=== PATIENT | female | born 1940 | race Caucasian/White ===

== ENCOUNTER → 2018-12-29 10:07 | Outpatient (CLI) | payer MEDICARE, SELFPAY | PROVIDERS: Visit Provider Family Medicine | DX: Z78.0 Asymptomatic menopausal state (principal); M85.89 Other specified disorders of bone density and structure, multiple sites | CPT/HCPCS: 77080 ==

== ENCOUNTER 2020-12-05 11:10 | Emergency (ER) | payer MEDICARE, SELFPAY ==
[2020-12-05] VITALS (12 sets, daily range): BP systolic 119–146; BP diastolic 56–67; PULSE 67–81; RESP 14–27; TEMP 36.2; O2SAT 92–99
--- NOTE | 2020-12-05 11:26 | DI.RAD.S_ITS ---
PROCEDURE: XR CHEST 1V INDICATIONS: chest pain TECHNIQUE: One view of the chest was acquired. COMPARISON: None. FINDINGS: Surgical changes and devices: None. Lungs and pleura: Lungs are clear. No pleural effusions or pneumothorax. Mediastinum: Mediastinal contours appear normal. Heart size is normal. Bones and chest wall: No suspicious bony lesions. Overlying soft tissues appear unremarkable. IMPRESSION: No acute pulmonary process. Dictated by: Zulema Matthews M.D. on 12/05/2020 at 12:33 Approved by: Zulema Matthews M.D. on 12/05/2020 at 12:33
[2020-12-05 12:42] LABS: Add Manual Diff / Slide Review NO; Basophils Absolute Auto 100 /uL (0-100); Basophils Percent Auto 0.9 % (0-2); Eosinophils Absolute Auto 100 /uL (0-450); Eosinophils Percent Auto 0.8 % (2-4); Hematocrit 28.3 % (36-46); Hemoglobin 9.6 g/dL (12.0-16.0); Lymphocytes Absolute Auto 1200 /uL (1100-4500); Lymphocytes Percent Auto 17.2 % (25-40); Mean Corpuscular Hemoglobin 30.6 PG (26-34); Monocytes Absolute Auto 400 /uL (0-900); Monocytes Percent Auto 5.8 % (3-14); Neutrophils Absolute Auto 5400 /uL (1500-7000); Neutrophils Percent Auto 75.3 % (50-75); Platelet Count 242 X10^3/uL (150-400); Red Blood Cell Count 3.15 X10^6/uL (4.0-5.2); Red Cell Distribution Width 13.5 % (11.6-14.8); White Blood Cell Count 7.2 X10^3/uL (4.5-11.0)
[2020-12-05 12:53] LABS: Alanine Aminotransferase 46 IU/L (<35); Albumin 4.1 g/dL (3.5-5.0); Albumin Globulin Ratio 1.6 (1.0-2.8); Alkaline Phosphatase 78 U/L (38-126); Aspartate Aminotransferase 37 IU/L (14-36); BUN Creatinine Ratio 27.1 (6-22); Bilirubin Total 0.3 mg/dL (0.2-1.3); Blood Urea Nitrogen 19 mg/dL (7-17); Calcium 10.1 mg/dL (8.4-10.2); Carbon Dioxide 29 mmol/L (22-32); Chloride 106 mmol/L (98-107); Creatine Kinase 37 U/L (30-135); Estimated Glomerular Filt Rate > 60.0 mL/min (>60); Globulin 2.5 g/dL (1.7-4.1); Glucose 96 mg/dL (80-110); HEMOLYSIS < 15 (0-50); Lipase 166 U/L (23-300); Magnesium 2.1 mg/dL (1.6-2.3); Potassium 3.9 mmol/L (3.4-5.1); Sodium 139 mmol/L (137-145); Total Protein 6.6 g/dL (6.3-8.2)
[2020-12-05 13:04] LABS: Troponin I < 0.012 ng/mL (0.01-0.034)
--- NOTE | 2020-12-05 13:42 | ED_ITS ---
HPI - Chest Pain General Chief Complaint: Chest Pain Stated Complaint: chest pain, started in last 20 minutes Time Seen by Provider: 12/05/20 11:34 Source: patient Mode of arrival: Ambulatory Limitations: no limitations History of Present Illness HPI narrative: This is a pleasant 80-year-old female comes emergency department with complaint of right-sided chest discomfort that started around 10:00 a.m. in the morning. Patient states it is on the right side it is worse with movement of her upper extremity particularly the shoulder, deep breath. Patient denies any recent trauma. She does state that she had a near syncopal episode and got diaphoretic and had to have a seat while getting up to urinate in the middle the night. She did not have any chest pain or shortness of breath that episode. She denies any shortness of breath with this episode today. Discomfort is still present. She denies any nausea, no vomiting, no numbness some tingling or weakness. She has a rash in her left armpit but does not have any rash or skin changes of the left chest or arm. She has not had any diarrhea. No melanotic or bright red bloody stools. Patient did have a TIA in September of 2020. She was started on aspirin daily and is noted that her hemoglobin was 13 in September and is 9.6 today. Related Data Home Medications Medication Instructions Recorded Confirmed Alendronate Sodium (FOSAMAX) 5 mg PO Q DAY #0 01/15/07 [THIROXINE] Q DAY #0 01/15/07 Allergies Allergy/AdvReac Type Severity Reaction Status Date / Time No Known Drug Allergies Allergy Verified 12/05/20 12:32 Review of Systems Review of Systems ROS Unobtainable: All systems reviewed & are unremarkable except as noted in HPI and below Patient History Social History Smoking Status: Never smoker Smoking Status: Never smoker alcohol intake frequency: 0-2 drinks per day Substance Use Type: does not use Exam Narrative Exam Narrative: GENERAL: Alert and oriented x three, mild distress HEENT: Head normocephalic, atraumatic, EOMI, pupils reactive, face symmetric, moist mucous membranes NECK: Supple, full range of motion CARDIOVASCULAR: Regular rate and rhythm without murmurs, rubs or gallops. RESPIRATORY: Breath sounds equal bilaterally, no wheezes rales or rhonchi. ABDOMEN: Soft, nontender. Normoactive bowel sounds all 4 quadrants. No guarding or rebound, rigidity, no mass, on rectal exam no mass. Stool occult is positive with dark stool. : No CVA tenderness EXTREMITIES: Normal range of motion, no clubbing or edema. Neurovascularly intact NEUROLOGICAL: Cranial nerves II through XII grossly intact. Moving all extremities SKIN: Warm, dry, no petechiae, no rashes or lesions. Initial Vital Signs Initial Vital Signs: Vital Signs Temperature 97.1 F L 12/05/20 11:22 Pulse Rate 80 12/05/20 11:22 Respiratory Rate 14 12/05/20 11:22 Blood Pressure 136/60 12/05/20 11:22 Pulse Oximetry 96 12/05/20 11:22 Course Orders Ordered: ED Orders 12/05/20 11:26 XR chest 1V Stat EKG-12 Lead Stat 12/05/20 12:21 Ferritin Stat Iron Profile (w/ % Saturation) Stat 12/05/20 12:31 Complete Blood Count AUTO DIFF Stat Comprehensive Metabolic Panel Stat Lipase Stat Magnesium Stat Troponin & CK Cardiac Panel Stat 12/05/20 13:45 COVID19 -Nasal swab/Pre-Proc Stat 12/05/20 14:30 Troponin I Stat 12/05/20 15:09 EKG-12 Lead Stat Discontinued Medications Acetaminophen (Acetaminophen 325 Mg Tablet) 975 mg PO NOW ONE Stop: 12/05/20 14:48 Last Admin: 12/05/20 15:30 Dose: 975 mg Documented by: [email or web address] Reevaluation(s) Reevaluation #1: Updated on EKG and troponin findings. Patient also encouraged to follow up short-term with gastroenterology or our general surgeons for scope. Her daughter is at bedside who is happy to help facilitate this. They defer a prescription and will get PPI over the counter and start this today. Discussed patient's anticoagulation versus balance for GI bleed with her aspirin. Plan to hold for 1 week but aware that this does increase her stroke risk. Patient was encouraged to return shortly she does not wish to be kept for observation. Consultations Consultation #1: Dr. Pratt, general surgery for outpatient follow up. Vital Signs Vital signs: Vital Signs - 8 hr 12/05/20 12:24 12/05/20 12:25 12/05/20 12:30 Pulse Rate 73 74 75 Respiratory Rate 25 H Blood Pressure 134/56 L 130/63 Pulse Oximetry 99 92 12/05/20 13:00 12/05/20 13:30 12/05/20 13:31 Pulse Rate 67 68 71 Respiratory Rate 22 24 25 H Blood Pressure 119/58 L 129/61 Pulse Oximetry 12/05/20 14:00 12/05/20 14:30 12/05/20 15:00 Pulse Rate 73 80 76 Respiratory Rate 23 23 22 Blood Pressure 131/60 Pulse Oximetry 12/05/20 15:30 12/05/20 16:05 Pulse Rate 81 80 Respiratory Rate 27 H 14 Blood Pressure 146/67 H Pulse Oximetry MDM - Chest Pain Lab Data Result diagrams: 12/05/20 12:31 12/05/20 12:31 Labs: Lab Results 12/05/20 12/05/20 12/05/20 Range/Units 12:21 12:21 12:31 WBC 7.2 (4.5-11.0) X10^3/uL RBC 3.15 L (4.0-5.2) X10^6/uL Hgb 9.6 L (12.0-16.0) g/dL Hct 28.3 L (36-46) % MCV 90.0 (80-100) fL MCH 30.6 (26-34) PG MCHC 34.0 (30-36) % RDW 13.5 (11.6-14.8) % Plt Count 242 (150-400) X10^3/uL Neut % (Auto) 75.3 H (50-75) % Lymph % (Auto) 17.2 L (25-40) % [place] % (Auto) 5.8 (3-14) % Eos % (Auto) 0.8 L (2-4) % Baso % (Auto) 0.9 (0-2) % Neut # (Auto) 5400 (6029-4096) /uL Lymph # (Auto) 1200 (5984-5710) /uL [place] # (Auto) 400 (0-900) /uL Eos # (Auto) 100 (0-450) /uL Baso # (Auto) 100 (0-100) /uL Sodium (137-145) mmol/L Potassium (3.4-5.1) mmol/L Chloride (98-107) mmol/L Carbon Dioxide (22-32) mmol/L BUN (7-17) mg/dL Creatinine (0.52-1.04) mg/dL Estimated GFR (>60) mL/min BUN/Creatinine Ratio (6-22) Glucose (80-110) mg/dL Calcium (8.4-10.2) mg/dL Magnesium (1.6-2.3) mg/dL Iron 73 (37-170) ug/dL TIBC 267 (265-497) ug/dL % Saturation 27 (15-50) % Transferrin 200 L (206-381) mg/dL Ferritin 85 (11-264) ng/mL Total Bilirubin (0.2-1.3) mg/dL AST (14-36) IU/L ALT (<35) IU/L Alkaline Phosphatase (38-126) U/L Total Creatine Kinase (30-135) U/L CK-MB (CK-2) CK-MB (CK-2) Rel Index Troponin I (0.01-0.034) ng/mL Total Protein (6.3-8.2) g/dL Albumin (3.5-5.0) g/dL Globulin (1.7-4.1) g/dL Albumin/Globulin Ratio (1.0-2.8) Lipase (23-300) U/L SARS-CoV-2 (PCR) (Negative) 12/05/20 12/05/20 12/05/20 Range/Units 12:31 13:45 14:30 WBC (4.5-11.0) X10^3/uL RBC (4.0-5.2) X10^6/uL Hgb (12.0-16.0) g/dL Hct (36-46) % MCV (80-100) fL MCH (26-34) PG MCHC (30-36) % RDW (11.6-14.8) % Plt Count (150-400) X10^3/uL Neut % (Auto) (50-75) % Lymph % (Auto) (25-40) % [place] % (Auto) (3-14) % Eos % (Auto) (2-4) % Baso % (Auto) (0-2) % Neut # (Auto) (4026-9499) /uL Lymph # (Auto) (8474-7279) /uL [place] # (Auto) (0-900) /uL Eos # (Auto) (0-450) /uL Baso # (Auto) (0-100) /uL Sodium 139 (137-145) mmol/L Potassium 3.9 (3.4-5.1) mmol/L Chloride 106 (98-107) mmol/L Carbon Dioxide 29 (22-32) mmol/L BUN 19 H (7-17) mg/dL Creatinine 0.70 (0.52-1.04) mg/dL Estimated GFR > 60.0 (>60) mL/min BUN/Creatinine Ratio 27.1 H (6-22) Glucose 96 (80-110) mg/dL Calcium 10.1 (8.4-10.2) mg/dL Magnesium 2.1 (1.6-2.3) mg/dL Iron (37-170) ug/dL TIBC (265-497) ug/dL % Saturation (15-50) % Transferrin (206-381) mg/dL Ferritin (11-264) ng/mL Total Bilirubin 0.3 (0.2-1.3) mg/dL AST 37 H (14-36) IU/L ALT 46 H (<35) IU/L Alkaline Phosphatase 78 (38-126) U/L Total Creatine Kinase 37 (30-135) U/L CK-MB (CK-2) TNP CK-MB (CK-2) Rel Index TNP Troponin I < 0.012 < 0.012 (0.01-0.034) ng/mL Total Protein 6.6 (6.3-8.2) g/dL Albumin 4.1 (3.5-5.0) g/dL Globulin 2.5 (1.7-4.1) g/dL Albumin/Globulin Ratio 1.6 (1.0-2.8) Lipase 166 (23-300) U/L SARS-CoV-2 (PCR) Negative (Negative) Urine Dip Bedside Urine Glucose Negative Bedside Urine Bilirubin - Negative Bedside Urine Ketone - Negative Urine Specific Western 1.020 Bedside Urine Occult Blood - Negative Bedside Urine pH 6 Bedside Urine Protein - Negative Bedside Urine Urobilinogen - Negative Bedside Urine Nitrite - Negative Bedside Urine Leukocytes - Negative Esterase Imaging Data Chest x-ray: Radiologist's Impression: Rin Jenkins 80 F [address] [id number] ReportSigned Patient: Rin Jenkins MMR#: [id number]: 1940cct:[id number]/Sex: 80 / FDate of Service: 12/05/20Loc: EDAccession Number: [id number] Procedure: XR chest 1V Ordering Provider: Marija Zapata D.O. PROCEDURE: XR CHEST 1V INDICATIONS: chest pain TECHNIQUE: One view of the chest was acquired. COMPARISON: None. FINDINGS: Surgical changes and devices: None. Lungs and pleura: Lungs are clear. No pleural effusions or pneumothorax. Mediastinum: Mediastinal contours appear normal. Heart size is normal. Bones and chest wall: No suspicious bony lesions. Overlying soft tissues appear unremarkable. IMPRESSION: No acute pulmonary process. Dictated by: Zulema Matthews M.D. on 12/05/2020 at 12:33 Approved by: Zulema Matthews M.D. on 12/05/2020 at 12:33 ECG Data Interpretation: Sinus rhythm, rate of 70 8p are 144 QRS is 74 and QTC of 471. No acute ST elevation depression. Patient does not have prior for comparison. EKG 2. Sinus rhythm rate of 70 2p are 152 QRS is 74 and QTC of 470. No acute ST elevation depression. Patient's EKG appears similar to prior from today. MDM Narrative Medical decision making narrative: 80-year-old female comes with of right-sided chest pain which is worse with movement. She did have a near syncopal episode she denies any passing out. But is noted to have a drop in her hemoglobin from 13-9.6 and stool occult is positive. Patient has mildly elevated AST, ALT. Trope is negative, chest x-ray shows no acute changes. EKG does not show any acute changes today I do not have any priors for comparison. Patient's labs do show a drop in her hemoglobin, was able to obtain all old and her hemoglobin was 13 in September, she was started on aspirin after a TIA and likely has a slow GI bleed. Patient prefers to be discharged home today. Discharge Plan Departure Patient Disposition: Home Clinical Impression: GI bleed, Atypical chest pain Activity Restrictions/Additional Instructions: Follow-up with your physician, here hemoglobin has decreased by quite a bit and this may have caused your near syncopal episode the other night. Talk with your physician to have your hemoglobin rechecked later this week. You need colonoscopy and likely upper endoscopy for evaluation of your source of bleeding. Included below is referral to our general surgeon for endoscopy and/or colonoscopy. Call for an appointment. I have discussed your case with Dr. Pratt. Hold your aspirin until you discuss with your physician. This will potentially increase your stroke risk so please discuss with your physician if you continue to hold it for a long period of time. Take pepcid 40mg daily. This is available over the counter. Please return for new or worsening symptoms, recurrent lightheadedness or passing out, fevers, new or worsening chest pain short, shortness of breath, sweatiness, nausea, new swelling in your extremities or other new or concerning symptoms Prescriptions: No Action Alendronate Sodium (FOSAMAX) 5 mg PO Q DAY Qty: 0 RF: 0 [THIROXINE] Q DAY Qty: 0 RF: 0 Referrals: Mary Pratt MD [Physician] - April Morrow MD [Primary Care Provider] -
[2020-12-05 15:25] LABS: COVID19 -Nasal RAPID Negative (Negative)
[2020-12-05] MEDS: ACETAMINOPHEN 325 MG TABLET 975 MG PO (15:30)
[2020-12-05 15:34] LABS: Troponin I < 0.012 ng/mL (0.01-0.034)
[2020-12-05 16:11] LABS: HEMOLYSIS < 15 (0-50); Iron 73 ug/dL (37-170)
[2020-12-05 16:22] LABS: Percent Iron Saturation 27 % (15-50); Total Iron Binding Capacity 267 ug/dL (265-497); Transferrin 200 mg/dL (206-381)
[2020-12-05 16:50] LABS: Ferritin 85 ng/mL (11-264)
== END 2020-12-05 16:06 | disposition home or self-care (01) ==
PROVIDERS: Emergency Provider Emergency Medicine; PCP Student in an Organized Health Care Education/Training Program
DX: K92.2 Gastrointestinal hemorrhage, unspecified (principal); R07.89 Other chest pain; R55 Syncope and collapse; Z20.822 Contact with and (suspected) exposure to COVID-19
CPT/HCPCS: 36415; 71045; 80053; 81003; 82550; 82728; 83540; 83550; 83690; 83735; 84484; 85025; 87635; 93005; 93010; 99284; C9803

== ENCOUNTER → 2021-01-11 09:23 | Outpatient (CLI) | payer MEDICARE, SELFPAY ==
[2021-01-11 10:46] LABS: COVID19 -Nasal RAPID Negative (Negative)
== END ==
PROVIDERS: PCP Student in an Organized Health Care Education/Training Program; Visit Provider Surgery
DX: Z01.812 Encounter for preprocedural laboratory examination (principal); Z20.822 Contact with and (suspected) exposure to COVID-19
CPT/HCPCS: 87635; C9803

== ENCOUNTER 2021-01-12 14:12 | Day surgery (SDC) | payer MEDICARE, SELFPAY ==
[2021-01-12] VITALS (7 sets, daily range): BP systolic 99–142; BP diastolic 65–85; PULSE 62–96; RESP 16–18; TEMP 36.4–36.6; O2SAT 95–100; BMI 24.7
--- NOTE | 2021-01-12 | PATH_ITS ---
[facility] Accession Number: [id number] . 01 Material submitted: . PART A: stomach - STOMACH BIOPSY PART B: colon - DESCENDING COLON POLYP . 02 Diagnosis: A. Stomach Biopsy: Helicobacter pylori gastritis with intestinal metaplasia, confirmed by immunohistochemistry. Negative for dysplasia and malignancy. . B. Descending Colon, Polyp, Biopsy: Tubulovillous adenoma. No evidence of malignancy or high-grade dysplasia. MRV 01/17/2021 1313 Local . 02 Electronically signed: . Trista Vargas MD, Pathologist NPI- [id number] . 01 Gross description: . Part A: STOMACH BIOPSY: Received in formalin are 2 fragment(s) of oneal, soft tissue measuring 0.3 x 0.2 x 0.2 cm to 0.3 x 0.2 x 0.1 cm submitted entirely in 1 cassette(s) Part B: DESCENDING COLON POLYP: Received in formalin are multiple fragment(s) of oneal, soft tissue measuring 2.0 x 1.0 x 0.4 cm in aggregate submitted entirely in 1 cassette(s) /KIMBERLEY 01/13/2021 0705 Local . 02 Microscopic: . A. An immunohistochemical stain was performed to evaluate for Helicobacter organisms and is positive. The control stain showed appropriate reactivity. . * This test was developed and its performance characteristics determined by [employer]. It has not been cleared or approved by the U.S. Food and Drug Administration. The FDA has determined that such clearance or approval is not necessary. This test is used for clinical purposes. It should not be regarded as investigational or for research. . 02 Pathologist provided ICD-10: D64.9, D12.4, B96.81 . 02 CPT . 815959, 597584, N96133 Performed at: 01 [facility] [address] [place] [address], [place], [place] [id number] MD Merrill Herrera MD Phone: [phone] Performed at: 02 [facility] [address] [place], [place] [id number] MD Trista Vargas MD Phone: [phone]
[2021-01-12] MEDS: LACTATED RINGERS 1,000 ML 200 ML IV (14:50)
--- NOTE | 2021-01-12 15:17 | PM.PREOP ---
Pre-operative Note Interval Note History & Physical reviewed/Exam performed by Physician: Yes Changes to H&P: No
--- NOTE | 2021-01-12 15:57 | PM.OP.ENDO ---
Operative Date/Time/Diagnoses Date of procedure: 01/12/21 Time of procedure: 15:57 Pre-op diagnosis: Anemia Post-op diagnosis: other (Gastritis, colonic polyp) Procedure & Clinicians Study performed: Colonoscopy and esophagoduodenoscopy Same procedure as scheduled: Yes Indications: Anemia Surgeon: Ollie Gómez Procedure Notes Procedure in detail: Medications: Conscious sedation using 5mg IV midazolam and 150mcg IV of fentanyl The history and physical was performed/updated and the patient is ASA class is 2. The procedure was discussed in detail with the patient. Potential risks complications including infection, bleeding, missed diagnosis, perforation, need for surgery, and were explained. Their questions were answered and informed consent was obtained. Patient was brought to the procedure room and placed standard monitoring equipment. The patient's vital signs were monitored continuously throughout the entire procedure. Prior to starting time-out was performed. Patient placed in left lateral decubitus position. Time out was performed. Procedural sedation was administered with Versed and Fentanyl. A bite block was placed. the scope was inserted into the mouth and advanced through the esophagus and into the stomach. The stomach was notable for mild gastritis, no active ulcer or hemorrhage. Biopsy of the gastric body was performed with forceps. The pylorus was intubated and the duodenum was normal to the 2nd portion. The scope was retroflexed within the stomach and there was a small hiatal hernia. The scope was withdrawn into the esophagus the Z line was seen at 35 cm from the incisions. There was no Kruger's esophagitis or masses or strictures. Stomach was desufflated and scope removed. Patient tolerated procedure well. Examination began with a thorough inspection of the perianal area there was no evidence of fissures, fistulae, external hemorrhoids or cutaneous malignancy. The colonoscopy scope was then placed into the anal canal and was advanced to the cecum, which was identified by the ileocecal valve, the appendiceal orifice and the confluence of the taenia. The scope was then slowly withdrawn examining colon thoroughly in all directions, irrigating it of any residual stool. FINDINGS 1.Gastritis 2. 1 cm pedunculated polyp descending colon 70 cm from anal verge removed with cold snare. Scope withdrawal time: 7 Sedation minutes: 27 Specimen(s): other (gastric biopsy, descending colonic polyp) Complications: none Impression: gastritis, colonic polyp Post-procedure Recommendations: Colonscopy in 5 years Plan for aftercare: continue Prevacid Disposition: same day surgery
[2021-01-12] MEDS: MIDAZOLAM 5 MG/5 ML VIAL IV (15:58)
[2021-01-12] MEDS: LIDOCAINE 4% SOLN 50 ML 20 ML TOP (15:58)
[2021-01-12] MEDS: fentaNYL 250 MCG/5 ML INJ IV (15:59)
== END 2021-01-12 16:52 | disposition home or self-care (01) ==
PROVIDERS: PCP Student in an Organized Health Care Education/Training Program; Referring Provider Surgery; Visit Provider Surgery
PROC: 0DJ08ZZ Inspection of Upper Intestinal Tract, Via Natural or Artificial Opening Endoscopic (ICD-10-PCS; CPT 43235; principal; 2021-01-12 15:15)
PROC: 0DJD8ZZ Inspection of Lower Intestinal Tract, Via Natural or Artificial Opening Endoscopic (ICD-10-PCS; CPT 45378; 2021-01-12 15:15)
DX: D12.4 Benign neoplasm of descending colon (principal); D64.9 Anemia, unspecified; Z86.73 Personal history of transient ischemic attack (TIA), and cerebral infarction without residual deficits; Z79.82 Long term (current) use of aspirin; K44.9 Diaphragmatic hernia without obstruction or gangrene; K29.70 Gastritis, unspecified, without bleeding; B96.81 Helicobacter pylori [H. pylori] as the cause of diseases classified elsewhere
CPT/HCPCS: 45385; 43239; 99152; 99153; J2250; J3010

== ENCOUNTER → 2021-01-18 10:19 | Outpatient (CLI) | payer MEDICARE, SELFPAY ==
[2021-01-18 11:44] LABS: COVID19 -Nasal RAPID Negative (Negative)
== END ==
PROVIDERS: PCP Student in an Organized Health Care Education/Training Program; Visit Provider Physician Assistant
DX: Z20.822 Contact with and (suspected) exposure to COVID-19 (principal); Z01.812 Encounter for preprocedural laboratory examination
CPT/HCPCS: 87635; C9803

== ENCOUNTER → 2021-01-20 10:42 | Outpatient (CLI) | payer MEDICARE, SELFPAY ==
--- NOTE | 2021-01-20 | DI.NM.S_ITS ---
PROCEDURE: NM ESVIN PERF SPECT REST & STR Rest and exercise myocardial perfusion SPECT with gated imaging and ejection fraction RADIOPHARMACEUTICAL: 12.0 mCi Tc-99m sestamibi IV at rest and 25.4 mCi Tc-99m sestamibi IV at peak exercise. A one day-protocol was performed. INDICATIONS: Other chest pain TECHNIQUE: Radiopharmaceutical was injected at peak stress test, and also at rest. SPECT images were obtained. SPECT myocardial perfusion images were displayed in short axis, horizontal long axis, and vertical long axis views. Gated images were reviewed using [employer] software. COMPARISON: None. CARDIAC STRESS: A standard Jefry treadmill exercise tolerance test was performed by the patient under the supervision of an attending staff. The patient exercised for 5 minutes and 31 seconds; functional aerobic impairment (LEONARDA) is -10%. Hemodynamic data: There is normal blood pressure and heart rate response to exercise stress. Patient achieved 94% of maximum predicted heart rate at peak exercise. Symptoms: Patient denied chest pain during exercise. EKG: Mild horizontal ST depressions in the inferior and anterolateral leads with exercise; no ectopy. FINDINGS: Raw data: There is good myocardial labeling by radiotracer. No significant motion artifacts. Left ventricle function: Gated images demonstrate normal left ventricle wall thickening. No segmental wall motion abnormality. No transient ischemic dilation; TID is 0.97 (normal less than 1.3). The left ventricle resting end-diastolic volume is 65 mL. Left ventricle stress ejection fraction is 84%; normal values are above 45%. Myocardial perfusion: No fixed or reversible perfusion defects based on stress prone images. IMPRESSION: Low risk, normal treadmill nuclear stress test 1) No perfusion evidence of ischemia or infarction. 2) Normal left ventricular size, wall motion, and systolic function (EF post stress 84%). 3) Mild horizontal ST depressions in the inferior and anterolateral leads with exercise. These changes are non-diagnostic in the setting of normal perfusion images. 4) No angina during the study. 5) Above average exercise tolerance (7.0 METs, LEONARDA -10%). Target heart rate achieved. Appropriate BP response to exercise. 6) No prior nuclear stress test available for comparison. Dictated by: Ana Interiano MD on 01/20/2021 at 16:57 Approved by: Ana Interiano MD on 01/20/2021 at 17:01
== END ==
PROVIDERS: PCP Student in an Organized Health Care Education/Training Program; Referring Provider Student in an Organized Health Care Education/Training Program; Visit Provider Student in an Organized Health Care Education/Training Program
DX: R07.89 Other chest pain (principal)
CPT/HCPCS: 78452; 93016; 93017; 93018; A9502

== ENCOUNTER → 2021-02-27 13:23 | Outpatient (CLI) | payer MEDICARE, SELFPAY ==
--- NOTE | 2021-02-27 | DI.CT.S_ITS ---
PROCEDURE: CT ABDOMEN PELVIS W CON INDICATIONS: Diarrhea, unspecified TECHNIQUE: After the administration of oral and intravenous contrast, axial sections were acquired from the lung bases to the pubic symphysis. Coronal and sagittal reformats were performed. For radiation dose reduction, the following was used: automated exposure control, adjustment of mA and/or kV according to patient size. COMPARISON:None. FINDINGS: Image quality: Excellent. Lung bases: Unremarkable. Heart: No significant findings. ABDOMEN: Liver: Unremarkable. Gallbladder: Somewhat contract id, with a small stone. Biliary ducts: Unremarkable. Pancreas: Unremarkable. Spleen: Unremarkable. Adrenal Glands: Unremarkable. Kidneys and Ureters: Unremarkable. Stomach and Bowel: Minimal hiatal hernia. No abnormally dilated loops of bowel. The descending colon and proximal and mid sigmoid colon and transverse colon have mild wall thickening and a degree of colonic wall enhancement. Findings are consistent with mild colitis. Peritoneum: No abnormal intraperitoneal fluid. No free air. Ventral Wall: No hernia. Abdominal Nodes: No retroperitoneal or mesenteric adenopathy by size criteria. Vessels: Aorta and inferior vena cava are normal in size. SMA and celiac origins are widely patent. YARITZA is grossly patent. PELVIS: Pelvic Organs: Unremarkable. Bladder: Somewhat decompressed. Question mild wall thickening. Pelvic Nodes: No enlarged lymph nodes. Miscellaneous: No inguinal hernias are seen. Bones: Lumbar degenerative change. No compression fractures. No lytic or blastic bony lesions. IMPRESSION: 1. Findings are consistent with mild colitis involving the transverse colon through the rectum. Consider infectious versus inflammatory etiologies. 2. Cholelithiasis. 3. Small hiatal hernia. Dictated by: Nando Corona M.D. on 02/27/2021 at 15:28 Approved by: Nando Corona M.D. on 02/27/2021 at 15:33
== END ==
PROVIDERS: PCP Student in an Organized Health Care Education/Training Program; Referring Provider Student in an Organized Health Care Education/Training Program; Visit Provider Student in an Organized Health Care Education/Training Program
DX: R19.7 Diarrhea, unspecified (principal); K80.20 Calculus of gallbladder without cholecystitis without obstruction; K44.9 Diaphragmatic hernia without obstruction or gangrene
CPT/HCPCS: 74177; Q9967

== ENCOUNTER → 2021-03-17 11:10 | Outpatient (CLI) | payer MEDICARE, SELFPAY ==
[2021-03-20 12:04] LABS: H. Pylori Antigen Stool Negative (Negative)
== END ==
PROVIDERS: PCP Student in an Organized Health Care Education/Training Program; Referring Provider Internal Medicine Gastroenterology; Visit Provider Internal Medicine Gastroenterology
DX: R19.7 Diarrhea, unspecified (principal)
CPT/HCPCS: 87338

== ENCOUNTER → 2021-07-06 16:06 | Outpatient (CLI) | payer MEDICARE, SELFPAY ==
--- NOTE | 2021-07-06 | DI.MRI.S_ITS ---
PROCEDURE: MR HEAD/BRAIN WO CON INDICATIONS: WHITE MATTER DISEASE,TIA TECHNIQUE: Non-contrast axial T1 spin echo, axial T2 fast spin echo, sagittal and axial FLAIR, coronal T2 fast spin echo, axial gradient echo, axial diffusion and ADC through the brain. COMPARISON: [facility], , MRI BRAIN WITHOUT CONTRAST, 03/15/2021, 12:43. Outside Facility, , MRI BRAIN WITHOUT CONTRAST, 10/03/2020, 13:26. FINDINGS: Image quality: Excellent. CSF spaces: Ventricles appear symmetric in size and shape. Basal cisterns are patent. No extra-axial fluid collections. Brain: No intracranial bleeds or mass effects. There is cerebral volume loss for age. There are mild pontine, subcortical and periventricular white matter chronic small vessel ischemic changes. Brainstem appears normal. Diffusion-weighted images show no acute ischemic insults. No chronic ischemic insults. Normal intravascular flow voids are present. Skull and face: Calvarial bone marrow is normal in signal. Orbits are normal. Sinuses: Sinuses and mastoids are clear. IMPRESSION: 1. No acute intracranial disease process. Heidi of 2. No abnormal intracranial mass or mass effect. 3. No areas of acute or chronic infarction. 4. Mild periventricular, subcortical and pontine white matter chronic microvascular ischemic changes are stable compared to March 15, 2021. 5. Mild, diffuse cerebral volume loss. Dictated by: Kimmie Nuñez MD, PhD on 07/07/2021 at 13:21 Approved by: Kimmie Nuñez MD, PhD on 07/07/2021 at 13:25
== END ==
PROVIDERS: PCP Student in an Organized Health Care Education/Training Program; Referring Provider Student in an Organized Health Care Education/Training Program; Visit Provider Student in an Organized Health Care Education/Training Program
DX: G45.9 Transient cerebral ischemic attack, unspecified (principal); R90.82 White matter disease, unspecified; F41.9 Anxiety disorder, unspecified; F68.8 Other specified disorders of adult personality and behavior; R41.0 Disorientation, unspecified
CPT/HCPCS: 70551

== ENCOUNTER 2021-10-02 11:30 | Outpatient (RCR) | payer MEDICARE, SELFPAY ==
--- NOTE | 2021-09-19 14:50 | ST.OP.ACL ---
Visit Care Team Role Provider Type April Morrow MD Family Provider Physician Primary Care Provider Specialty: Family Practice Address: [address] [place] [address], [place], [address] Email: [email or web address] Van Pierce MD Attending Provider Non-Staff Referring Provider Specialty: Neurology Address: [address] [place] [address], [id number] Email: Adult Cognitive Linguistic Evaluation BOILERMAKER Adult Cognitive Linguistic Eval Start: 09/19/21 14:17 Freq: Status: Active Protocol: Document 09/19/21 14:17 ZS (Rec: 09/19/21 14:48 ZS [id number]) Adult Cognitive Linguistic Evaluation Session Time Visit Start Time 10:40 Visit Stop Time 11:15 Total Visit Minutes 35 Visit Information Visit Number Initial Evaluation Plan of Care Dates 09/19/2021 - 05/26/2022 Insurance Information Medicare Referral Referring Provider Dr. April Morrow Reason for Referral Memory loss and TIA in September 2020 Setting Assessment Location Outpatient Care Visit Type Note Type Initial evaluation Next Note Type Next Note Type Treatment Note Patient Information Identification Type Name Patient History Rin is a 81-year old female who had a TIA in September 2020. Per medical history from visit with a neuropsychologist, Rin has a past medical history of cognitive and personality changes and was having some additional stress factors of finances and being marginalized as well as perception of losing control over her own independence. She reports being able to do activities of daily living independently. Patient is also concerned about her relationship with her of 60 years which has deteriorated over the year. She is no longer driving. She has a caregiver part-time who provides transportation services and enjoys shopping. Patient is accused of excessive spending and now has a debit card instead of a credit card, and this is a stress factor for the patient. Her house in [place] is being sold off and she feels excluded in the decision making process. Additional concerns reported to the neuropsychologist were reported by the pt's daughters . They stated she has had slowly progressive cognitive and personality changes since 2019 and may have further precipitated in progress during the pandemic. Safety factors were discussed including examples provided where patient does not put food back properly or dispose of food properly and may have resulted in food poisoning. Examples provided regarding poor decisions during driving some which were extremely unsafe. Other examples include improper use of money and having difficulty using money or able to control finances or concerns about being taken advantage of by scammers. These factors have resulted in obtaining power of contracts attorney. Neurophsychologist reported Rin presented with progressive cognitive and behavioral changes with features of agitation and an evaluation is suggestive of frontotemporal dementia though PET images were inconsistent. Language(s) Spoken in the Home Korean Hearing Hearing Level Hearing Aids Auditory History Medical history indicated bilateral hearing loss with hearing aids Previous Therapy Previous Speech-Language Therapy No Subjective Patient Report Rin arrived 10 minutes late accompanied by her daughter, Nathan, who was present for the session. Rin and Nathan reported no concerns with memory loss and no impact on daily functioning. Rin reported her doctor had expressed some concerns and stated speech therapy may be helpful. Pt and her daughter have not received speech therapy in the past and are unclear about what services entail. Rin and Nathan reported no concerns for Rin's cognitive skills at this appointment. Assessment Oral Motor Examination Completed No Informal Assessment Receptive Language Normal Yes Expressive Language Normal Yes Pragmatic Language Normal Yes Speech Normal Yes Formal Assessment Standardized Test/Screener Type Cognitive Linguistic Quick Test (CLQT) Administration Complete Results Results of the CLQT indicate all cognitive skills are WNL. However, significant difficulty was observed in completion of the maze task and design generation task. Rin radames a line through a wall when completing the maze task and stated 3-4 times that there was no way to complete the maze. Rin required the complete 3 minutes to finish the maze and required prompts to keep trying as she still had time remaining. Rin radames 11 designs, 6 of which only contained 3 lines. Rin did not adjust any of the drawings when reminded all the shapes needed to have 4 lines . She required multiple repetitions of directions across all tasks and expressed confusion several times throughout testing. Suspect difficulty with visuospatial skills and executive functions due to areas of difficulty observed during testing. This is consistent with deficits identified in a prior assessment with the MoCA, on which Rin scored 20/30 with points lost for the recall and some visual spatial executive dysfunction. Recommend speech therapy due to concerns reported in medical history and difficulties observed with visuospatial skills and executive functions observed during assessment. Speech therapy to target executive function skills to improve safety and independence in daily living especially in food safety and financial stability and to increase pt knowledge and awareness of cognitive skills. Findings/Results Language Function Within normal limits Cognitive Function Within normal limits Cognitive Communication Deficits Self-awareness of Cognitive- No awareness Communication Deficits Prognosis Prognosis Good Based on Cognitive status,Family support,Duration of symptoms/ severity,Time since onset Plan of Care Speech-Language Treatment Yes Frequency Once a week Duration 45 minutes Patient/Caregiver Education Patient expressed understanding of evaluation, Patient expressed agreement with goals and treatment plans ,Family/caregivers expressed understanding of evaluation, Family/caregivers expressed agreement with goals and treatment plan,Patient requires further education/ training,Family/caregivers require further education/ training Short Term Goals 1. Pt will participate in education regarding cognitive domains and impact of skills on activities of daily living. 2. Pt will demonstrate independent use of internal and external strategies to increase executive function skills. Char Filter Tank Tender Goals Pt will exhibit increased safety and independence in home life through implementation of internal and external strategies, as related by pt and caregivers. Discharge Recommendations Home
--- NOTE | 2021-09-19 14:50 | ST.OPPOC ---
Physical, Occupational & Speech Therapy At [facility] Visit Care Team Role Provider Type April Morrow MD Family Provider Physician Primary Care Provider Address: [facility], [address], [place], [address] Van Pierce MD Attending Provider Non-Staff Referring Provider Address: [facility] [place], [address] Speech Pathology Plan of Care Plan of Care Dates 09/19/2021 - 05/26/2022 Patient History Rin is a 81-year old female who had a TIA in September 2020. Per medical history from visit with a neuropsychologist, Rin has a past medical history of cognitive and personality changes and was having some additional stress factors of finances and being marginalized as well as perception of losing control over her own independence. She reports being able to do activities of daily living independently. Patient is also concerned about her relationship with her of 60 years which has deteriorated over the year. She is no longer driving. She has a caregiver part-time who provides transportation services and enjoys shopping. Patient is accused of excessive spending and now has a debit card instead of a credit card, and this is a stress factor for the patient. Her house in [place] is being sold off and she feels excluded in the decision making process. Additional concerns reported to the neuropsychologist were reported by the pt's daughters. They stated she has had slowly progressive cognitive and personality changes since 2019 and may have further precipitated in progress during the pandemic. Safety factors were discussed including examples provided where patient does not put food back properly or dispose of food properly and may have resulted in food poisoning. Examples provided regarding poor decisions during driving some which were extremely unsafe. Other examples include improper use of money and having difficulty using money or able to control finances or concerns about being taken advantage of by scammers. These factors have resulted in obtaining power of contracts attorney. Neurophsychologist reported Rin presented with progressive cognitive and behavioral changes with features of agitation and an evaluation is suggestive of frontotemporal dementia though PET images were inconsistent. Language Function Within normal limits Cognitive Function Within normal limits Short Term Goals 1. Pt will participate in education regarding cognitive domains and impact of skills on activities of daily living. 2. Pt will demonstrate independent use of internal and external strategies to increase executive function skills. Hotel Valet Attendant Goals Pt will exhibit increased safety and independence in home life through implementation of internal and external strategies, as related by pt and caregivers. Electronically Signed by: ARTURO Bocanegra 09/19/21 9905 If you are in agreement with this Plan of Care, please return a signed and dated copy. I have reviewed this Plan of Care and certify that the skilled therapy services above are required to meet the patient?s needs. Physician Signature Date Printed Name and Credentials Clinical Instructor Signature Printed Name and Credentials
--- NOTE | 2021-10-02 16:18 | ST.OPTN ---
Visit Care Team Role Provider Type April Morrow MD Family Provider Physician Primary Care Provider Address: [address] [place] [address], [facility] [place], [address] Van Pierce MD Attending Provider Non-Staff Referring Provider Address: [address] [place], [address] TRANSITION MANAGER Treatment Note TRANSITION MANAGER Treatment Note Start: 09/19/21 14:17 Freq: Status: Active Protocol: Document 10/02/21 16:03 ZS (Rec: 10/02/21 16:18 ZS [id number]) Speech Pathology Treatment Note Session Time Visit Start Time 11:30 Visit Stop Time 12:05 Total Visit Minutes 35 Visit Information Visit Number 1 Plan of Care Dates 09/19/2021 - 05/26/2022 Insurance Information Medicare Setting Treatment Setting Outpatient Care Visit Type Note Type Treatment Note Next Note Type Next Note Type Treatment Note General Information Patient History Rin is a 81-year old female who had a TIA in September 2020. Per medical history from visit with a neuropsychologist, Rin has a past medical history of cognitive and personality changes and was having some additional stress factors of finances and being marginalized as well as perception of losing control over her own independence. She reports being able to do activities of daily living independently. Patient is also concerned about her relationship with her of 60 years which has deteriorated over the year. She is no longer driving. She has a caregiver part-time who provides transportation services and enjoys shopping. Patient is accused of excessive spending and now has a debit card instead of a credit card, and this is a stress factor for the patient. Her house in [place] is being sold off and she feels excluded in the decision making process. Additional concerns reported to the neuropsychologist were reported by the pt's daughters . They stated she has had slowly progressive cognitive and personality changes since 2018 and may have further precipitated in progress during the pandemic. Safety factors were discussed including examples provided where patient does not put food back properly or dispose of food properly and may have resulted in food poisoning. Examples provided regarding poor decisions during driving wome which were extremely unsafe. Other examples include improper use of money and having difficulty using money or able to control finances or concerns about being taken advantage of by scammers. These factors have resulted in obtaining power of deputy attorney general. Neurophsychologist reported Rin presented with progressive cognitive and behavioral changes with features of agitation and an evaluation is suggestive of frontotemporal dementia though PET images were inconsistent. Results of the CLQT indicate all cognitive skills are WNL. However, significant difficulty was observed in completion of the maze task and design generation task. Rin radames a line through a wall when completing the maze task and stated 3-4 times that there was no way to complete the maze. Rin required the complete 3 minutes to finish the maze and required prompts to keep trying as she still had time remaining. Rin radames 11 designs, 6 of which only contained 3 lines. Rin did not adjust any of the drawings when reminded all the shapes needed to have 4 lines . She required multiple repetitions of directions across all tasks and expressed confusion several times throughout testing. Suspect difficulty with visuospatial skills and executive functions due to areas of difficulty observed during testing. This is consistent with deficits identified in a prior assessment with the MoCA, on which Rin scored 20/30 with points lost for the recall and some visual spatial executive dysfunction. Recommend speech therapy due to concerns reported in medical history and difficulties observed with visuospatial skills and executive functions observed during assessment. Speech therapy to target executive function skills to improve safety and independence in daily living especially in food safety and financial stability and to increase pt knowledge and awareness of cognitive skills. Subjective Identification Type Name Identification Reconciled With Medical Record Observations/Patient Presentation Rin arrived on time and participated in all therapy activities. Chief Complaint(s) Cognitive Objective Short Term Goals 1. Pt will participate in education regarding cognitive domains and impact of skills on activities of daily living. 2. Pt will demonstrate independent use of internal and external strategies to increase executive function skills. Director Financial Systems Goals Pt will exhibit increased safety and independence in home life through implementation of internal and external strategies, as reported by pt and caregivers. Treatment Activities Reviewed CLQT results and discussed plan of care and treatment goals. Completed mazes and trail making tasks. Provided pt education regarding executive functions and possible impact on daily living tasks. Demonstrated and practiced 1-back game. Assessment Patient Response to Treatment Good Rehab Potential Good Impairments Identified Cognitive communication Assessment of Improvement Rin completed 4 mazes of increasing complexity accurately and in a timely manner. Difficulty observed with maze #5, as Rin paused and stated I don't know or that's not right, is it? while completing the maze. Similar behavior observed with completion of sequencing tasks Rin experienced as more difficult. She observed when she left out a number and stated that can't be right, but did not check her work or correct the error when it was pointed out to her. Rin exhibited understanding of 1- back game and stated she plays lots of card games at home. Discussed results of CLQT being WNL, though difficulty was observed with executive functions across several tasks . Rin to discuss areas of challenge in ADLs with family and caregivers in addition to observing areas where she experiences difficulty with ADLs between now and next appointment to inform goals and develop plan of care. Reviewed with Patient Goals,Home Exercise Program Patient/Caregiver Understanding Good Plan Amount of Therapy Recommended 8 Months Frequency of Treatment Once a Week Length of Session 45 Minutes Therapeutic Contents Client Education,Cognitive- Linguistic Training,Home Exercise Program Provided Patient/Caregiver Instruction Home Exercise Program,Plan of Care,Questions/Concerns Therapy Recommendations Continue with Current Program
--- NOTE | 2021-10-24 09:40 | ST.OPDS ---
Visit Care Team Role Provider Type April Morrow MD Family Provider Physician Primary Care Provider Address: [facility] [facility], [place], [address] Van Pierce MD Attending Provider Non-Staff Referring Provider Address: [address] [place], [address] LITHOGRAPHIC PRESS OPERATOR APPRENTICE Treatment Note LITHOGRAPHIC PRESS OPERATOR APPRENTICE Treatment Note Start: 09/19/21 14:17 Freq: Status: Active Protocol: Document 10/24/21 09:36 ZS (Rec: 10/24/21 09:39 ZS [id number]) Speech Pathology Treatment Note Visit Information Plan of Care Dates 09/19/2021 - 05/26/2022 Insurance Information Medicare Setting Treatment Setting Outpatient Care Visit Type Note Type Discharge Summary General Information Patient History Rin is a 81-year old female who had a TIA in September 2020. Per medical history from visit with a neuropsychologist, Rin has a past medical history of cognitive and personality changes and was having some additional stress factors of finances and being marginalized as well as perception of losing control over her own independence. She reports being able to do activities of daily living independently. Patient is also concerned about her relationship with her of 60 years which has deteriorated over the year. She is no longer driving. She has a caregiver part-time who provides transportation services and enjoys shopping. Patient is accused of excessive spending and now has a debit card instead of a credit card, and this is a stress factor for the patient. Her house in [place] is being sold off and she feels excluded in the decision making process. Additional concerns reported to the neuropsychologist were reported by the pt's daughters . They stated she has had slowly progressive cognitive and personality changes since 2019 and may have further precipitated in progress during the pandemic. Safety factors were discussed including examples provided where patient does not put food back properly or dispose of food properly and may have resulted in food poisoning. Examples provided regarding poor decisions during driving wome which were extremely unsafe. Other examples include improper use of money and having difficulty using money or able to control finances or concerns about being taken advantage of by scammers. These factors have resulted in obtaining power of defense attorney. Neurophsychologist reported Rin presented with progressive cognitive and behavioral changes with features of agitation and an evaluation is suggestive of frontotemporal dementia though PET images were inconsistent. Results of the CLQT indicate all cognitive skills are WNL. However, significant difficulty was observed in completion of the maze task and design generation task. Rin radames a line through a wall when completing the maze task and stated 3-4 times that there was no way to complete the maze. Rin required the complete 3 minutes to finish the maze and required prompts to keep trying as she still had time remaining. Rin radames 11 designs, 6 of which only contained 3 lines. Rin did not adjust any of the drawings when reminded all the shapes needed to have 4 lines . She required multiple repetitions of directions across all tasks and expressed confusion several times throughout testing. Suspect difficulty with visuospatial skills and executive functions due to areas of difficulty observed during testing. This is consistent with deficits identified in a prior assessment with the [facility], on which Rin scored 20/30 with points lost for the recall and some visual spatial executive dysfunction. Recommend speech therapy due to concerns reported in medical history and difficulties observed with visuospatial skills and executive functions observed during assessment. Speech therapy to target executive function skills to improve safety and independence in daily living especially in food safety and financial stability and to increase pt knowledge and awareness of cognitive skills. Subjective Identification Type Name Identification Reconciled With Medical Record Observations/Patient Presentation Rin called to request discharge from speech therapy. She indicated she does not feel the impairments identified impact her activities of daily living and does not feel she needs therapy at this time. Chief Complaint(s) Cognitive Objective Short Term Goals 1. Pt will participate in education regarding cognitive domains and impact of skills on activities of daily living. 2. Pt will demonstrate independent use of internal and external strategies to increase executive function skills. Assisted Goals Pt will exhibit increased safety and independence in home life through implementation of internal and external strategies, as reported by pt and caregivers. Assessment Patient Response to Treatment Good Rehab Potential Good Impairments Identified Cognitive communication Assessment of Improvement Goals not met as Rin only attended 1 session. Rin reported the areas identified in assessment do not impact her activities of daily living and she does not feel she needs therapy at this time. Discharging from speech therapy at this time. Reviewed with Patient Goals,Home Exercise Program Patient/Caregiver Understanding Good Plan Amount of Therapy Recommended 8 Months Frequency of Treatment Once a Week Length of Session 45 Minutes Therapeutic Contents Client Education,Cognitive- Linguistic Training,Home Exercise Program Provided Patient/Caregiver Instruction Home Exercise Program,Plan of Care,Questions/Concerns Therapy Recommendations Discharge from Speech Therapy Reason for Discharge Pt request, stated impairments do not impact ADLs
== END 2021-11-09 12:37 ==
LOC: SP 11:30
PROVIDERS: Family Provider Student in an Organized Health Care Education/Training Program; PCP Student in an Organized Health Care Education/Training Program; Referring Provider Psychiatry & Neurology Neurology; Visit Provider Psychiatry & Neurology Neurology
DX: F68.8 Other specified disorders of adult personality and behavior (principal)
CPT/HCPCS: 96125; 97129; 97130

== ENCOUNTER → 2021-10-05 10:12 | Outpatient (CLI) | payer MEDICARE, SELFPAY ==
--- NOTE | 2021-10-05 | DI.RAD.S_ITS ---
PROCEDURE: XR KNEE RT 3V INDICATIONS: Pain in unspecified knee/Pain in right hip TECHNIQUE: 3 views of the knee were acquired. COMPARISON: None. FINDINGS: Bones: No fractures or dislocations. No suspicious bony lesions. Moderate medial and patellofemoral as well as mild lateral compartment narrowing. Minimal periarticular osteophytes. No erosions. Soft tissues: No joint effusion. No suspicious soft tissue calcifications. IMPRESSION: Tricompartmental osteoarthritic change. Dictated by: Zulema Matthews M.D. on 10/05/2021 at 15:49 Approved by: Zulema Matthews M.D. on 10/05/2021 at 15:51
--- NOTE | 2021-10-05 | DI.RAD.S_ITS ---
PROCEDURE: XR KNEE LT 3V INDICATIONS: Pain in unspecified knee/Pain in right hip TECHNIQUE: 3 views of the knee were acquired. COMPARISON: None. FINDINGS: Bones: No fractures or dislocations. No suspicious bony lesions. [id number] tricompartmental arthritic change. No erosions. Very minimal periarticular osteophytes are present. Soft tissues: Mild joint effusion. No suspicious soft tissue calcifications. IMPRESSION: Gbto-cv-nryiqkcs osteoarthritis. Dictated by: Zulema Matthews M.D. on 10/05/2021 at 15:51 Approved by: Zulema Matthews M.D. on 10/05/2021 at 15:53
--- NOTE | 2021-10-05 | DI.RAD.S_ITS ---
PROCEDURE: XR HIP W PEL IF DONE RT 2V INDICATIONS: Pain in unspecified knee/Pain in right hip TECHNIQUE: AP pelvis with lateral view(s) of the right hip(s). COMPARISON: None. FINDINGS: Bones: No fractures or dislocations. Pelvic ring appears intact. No suspicious bony lesions. Mild joint space narrowing and periarticular osteophyte formation at the bilateral hip joints. Soft tissues: The visualized bowel gas pattern is normal. No suspicious soft tissue calcifications. IMPRESSION: Mild bilateral hip osteoarthritis. No acute fracture. No osseous lesion. If symptoms and/or clinical suspicion for pathology persist, further assessment with repeat, or advanced imaging (e.g., CT, MRI, or bone scan) may be helpful for further assessment. Dictated by: Joana Colón M.D. on 10/05/2021 at 13:45 Approved by: Joana Colón M.D. on 10/05/2021 at 13:45
== END ==
PROVIDERS: Family Provider Student in an Organized Health Care Education/Training Program; PCP Student in an Organized Health Care Education/Training Program; Referring Provider Student in an Organized Health Care Education/Training Program; Visit Provider Student in an Organized Health Care Education/Training Program
DX: M25.551 Pain in right hip (principal); M16.0 Bilateral primary osteoarthritis of hip; M17.12 Unilateral primary osteoarthritis, left knee; M25.561 Pain in right knee; M25.562 Pain in left knee
CPT/HCPCS: 73502; 73562

== ENCOUNTER 2021-12-31 13:01 | Observation (INO) | payer MEDICARE, SELFPAY ==
[2021-12-31] VITALS (8 sets, daily range): BP systolic 121–136; BP diastolic 40–75; PULSE 57–78; RESP 14–18; TEMP 35.8–36.7; O2SAT 96–100; BMI 22.3
--- NOTE | 2021-12-31 13:24 | ED_ITS ---
HPI - Weakness General Chief complaint: Weakness Stated complaint: Weakness Time Seen by Provider: 12/31/21 13:16 Source: family and EMS Mode of arrival: EMS History of Present Illness HPI Narrative: 81-year-old woman with frontotemporal dementia has been having is very significant decrease in level of function at home to the point where she cannot safely transfer even with the assistance of able bodied person. She lives at home with her similarly demented spouse who was unable to assist in transfers at all. She also suffers from active seizure and anxiety. She also has hypothyroidism and hypercholesterolemia. She is accompanied by her nurse practitioner daughter and physician son-in-law or both of the opinion that the home situation is untenable and she will certainly fall and sustain injuries if she is sent home so either way, they believe she requires hospitalization for more definitive and safe placement. Also has a history of GI bleeding, hypoparathyroidism, osteoporosis Related Data Home Medications Medication Instructions Recorded Confirmed atorvastatin 40 mg tablet (Lipitor) 40 mg PO DAILY 12/19/20 01/12/21 citalopram 20 mg tablet (Celexa) 20 mg PO DAILY 12/19/20 01/12/21 levothyroxine 50 mcg tablet 50 mcg PO DAILY 12/19/20 01/12/21 trazodone 50 mg tablet 50 mg PO BEDTIME PRN Insomnia 12/19/20 01/12/21 Prevacid 24Hr 30 mg PO DAILY 01/12/21 01/12/21 Previous Rx's Medication Instructions Recorded clarithromycin 500 mg tablet 500 mg PO BID #28 tabs 01/19/21 omeprazole 20 mg capsule,delayed 20 mg PO BID #28 caps 01/19/21 release Allergies Allergy/AdvReac Type Severity Reaction Status Date / Time Sulfa (Sulfonamide Allergy Verified 12/19/20 15:28 Antibiotics) Review of Systems Review of Systems Narrative: Review of systems is unobtainable in this demented woman Patient History Social History (Updated 12/19/20 @ 15:50 by Graciela Chaudhari MA) marital status: household members: spouse Smoking Status: Never smoker Smoking Status: Never smoker alcohol intake frequency: 0-2 drinks per day Substance Use Type: does not use Exam Narrative Exam Narrative: GENERAL: Alert, anxious and constantly moving HEAD: Atraumatic. Normocephalic. EYES: Sclera are clear without icterus. Extraocular movements are full. NECK: Supple. Full range of motion. No midline tenderness CARDIOVASCULAR: Normal rate and rhythm without murmur gallop or rub. RESPIRATORY: Clear to auscultation. Breath sounds equal bilaterally. No wheezes, rales, or rhonchi. GASTROINTESTINAL: Abdomen soft, non-tender, nondistended. EXTREMITIES: No edema, full range of motion. No obvious trauma. BACK: Normal inspection, no CVA tenderness. NEURO: Nonfocal examination, normal speech, normal gait. SKIN: No rash or erythema of visible areas PSYCH: Disoriented and anxious Initial Vital Signs Initial Vital Signs: Vital Signs Pulse Rate 72 12/31/21 13:06 Pulse Oximetry 100 12/31/21 13:06 Course Orders Ordered: ED Orders 12/31/21 13:28 CT head/brain wo con Stat EKG-12 Lead Stat 12/31/21 13:35 CBC Auto Diff [Complete Blood Count AUTO DIFF] Stat CMP [Comprehensive Metabolic Panel] Stat COVID19 -Nasal RAPID/Pre-Proc Stat 12/31/21 14:02 UA dip and micro [Urinalysis and Microscopic] Stat Discontinued Medications Diazepam (Diazepam 10 Mg/2 Ml Syringe) 5 mg IV NOW ONE Stop: 12/31/21 13:30 Last Admin: 12/31/21 13:45 Dose: 5 mg Documented By: KF Reevaluation(s) Reevaluation #1: Spoke with Dr. Mack who accepts the admit Vital Signs Vital signs: Vital Signs - 8 hr 12/31/21 13:08 12/31/21 13:06 12/31/21 13:30 Temperature 98.0 F Pulse Rate 76 72 Respiratory Rate 18 Blood Pressure 136/75 127/61 Pulse Oximetry 96 100 Oxygen Delivery Method Room Air 12/31/21 13:30 12/31/21 14:00 12/31/21 14:00 Temperature Pulse Rate 78 57 L Respiratory Rate Blood Pressure 123/57 L Pulse Oximetry 100 100 Oxygen Delivery Method 12/31/21 14:30 Temperature Pulse Rate 69 Respiratory Rate Blood Pressure Pulse Oximetry 98 Oxygen Delivery Method Will admit for further evaluation given her agitated state and inability to ambulate without full assistance. Expect PT evaluation and placement. MDM - Weakness Lab Data Result diagrams: 12/31/21 13:35 12/31/21 13:35 Labs: Lab Results 12/31/21 12/31/21 12/31/21 Range/Units 13:35 13:35 13:35 WBC 4.8 (4.5-11.0) X10^3/uL RBC 4.83 (4.0-5.2) X10^6/uL Hgb 14.1 (12.0-16.0) g/dL Hct 40.9 (36-46) % MCV 84.6 (80-100) fL MCH 29.2 (26-34) PG MCHC 34.5 (30-36) % RDW 14.0 (11.6-14.8) % Plt Count 221 (150-400) X10^3/uL Neut % (Auto) 67.3 (50-75) % Lymph % (Auto) 23.5 L (25-40) % [place] % (Auto) 7.7 (3-14) % Eos % (Auto) 0.5 L (2-4) % Baso % (Auto) 1.0 (0-2) % Neut # (Auto) 3200 (2759-9144) /uL Lymph # (Auto) 1100 (6775-8005) /uL [place] # (Auto) 400 (0-900) /uL Eos # (Auto) 0 (0-450) /uL Baso # (Auto) 0 (0-100) /uL Sodium 138 (137-145) mmol/L Potassium 4.1 (3.4-5.1) mmol/L Chloride 102 (98-107) mmol/L Carbon Dioxide 29 (22-32) mmol/L BUN 19 H (7-17) mg/dL Creatinine 0.79 (0.52-1.04) mg/dL Estimated GFR > 60 (>60) mL/min BUN/Creatinine Ratio 24.1 H (6-22) Glucose 106 (80-110) mg/dL Calcium 10.5 H (8.4-10.2) mg/dL Total Bilirubin 0.4 (0.2-1.3) mg/dL AST 33 (14-36) IU/L ALT 34 (<35) IU/L Alkaline Phosphatase 56 (38-126) U/L Total Protein 6.8 (6.3-8.2) g/dL Albumin 3.9 (3.5-5.0) g/dL Globulin 2.9 (1.7-4.1) g/dL Albumin/Globulin Ratio 1.3 (1.0-2.8) Urine Color Urine Appearance Urine pH (4.5-8.0) Ur Specific [place] (1.000-1.035) Urine Protein (Negative) Urine Glucose (UA) (Negative) g/dL Urine Ketones (NEGATIVE) Urine Occult Blood (Negative) Urine Nitrate (Negative) Urine Bilirubin (NEGATIVE) Urine Urobilinogen (0.2) E.U./dL Ur Leukocyte Esterase (NEGATIVE) Urine RBC (0-5/HPF) Urine WBC (0-5/HPF) Ur Squamous Epith Cells (0-5/HPF) Urine Bacteria (None) Ur Culture Indicated? SARS-CoV-2 (PCR) Negative (Negative) 12/31/21 Range/Units 14:02 WBC (4.5-11.0) X10^3/uL RBC (4.0-5.2) X10^6/uL Hgb (12.0-16.0) g/dL Hct (36-46) % MCV (80-100) fL MCH (26-34) PG MCHC (30-36) % RDW (11.6-14.8) % Plt Count (150-400) X10^3/uL Neut % (Auto) (50-75) % Lymph % (Auto) (25-40) % [place] % (Auto) (3-14) % Eos % (Auto) (2-4) % Baso % (Auto) (0-2) % Neut # (Auto) (4086-4191) /uL Lymph # (Auto) (4160-5179) /uL [place] # (Auto) (0-900) /uL Eos # (Auto) (0-450) /uL Baso # (Auto) (0-100) /uL Sodium (137-145) mmol/L Potassium (3.4-5.1) mmol/L Chloride (98-107) mmol/L Carbon Dioxide (22-32) mmol/L BUN (7-17) mg/dL Creatinine (0.52-1.04) mg/dL Estimated GFR (>60) mL/min BUN/Creatinine Ratio (6-22) Glucose (80-110) mg/dL Calcium (8.4-10.2) mg/dL Total Bilirubin (0.2-1.3) mg/dL AST (14-36) IU/L ALT (<35) IU/L Alkaline Phosphatase (38-126) U/L Total Protein (6.3-8.2) g/dL Albumin (3.5-5.0) g/dL Globulin (1.7-4.1) g/dL Albumin/Globulin Ratio (1.0-2.8) Urine Color Yellow Urine Appearance Clear Urine pH 7.5 (4.5-8.0) Ur Specific [place] 1.010 (1.000-1.035) Urine Protein Negative (Negative) Urine Glucose (UA) Negative (Negative) g/dL Urine Ketones 1+ H (NEGATIVE) Urine Occult Blood Negative (Negative) Urine Nitrate Negative (Negative) Urine Bilirubin Negative (NEGATIVE) Urine Urobilinogen 0.2 (0.2) E.U./dL Ur Leukocyte Esterase Negative (NEGATIVE) Urine RBC None seen (0-5/HPF) Urine WBC 0-1/hpf (0-5/HPF) Ur Squamous Epith Cells 0-1 /hpf (0-5/HPF) Urine Bacteria None seen (None) Ur Culture Indicated? Cult not indicated SARS-CoV-2 (PCR) (Negative) Imaging Data CT scan - head: Radiologist Impression: IMPRESSION:? ? Senescent changes consistent with chronic microvascular ischemic changes and cerebral volume loss without evidence of an acute intracranial abnormality. ? ? Dictated by: Coleman Marie D.O. on 12/31/2021 at 13:39 ? ? Approved by: Coleman Marie D.O. on 12/31/2021 at 13:43 ? Discharge Plan Departure Patient Disposition: Admitted as Observation Clinical Impression: Acute delirium
--- NOTE | 2021-12-31 13:28 | DI.CT.S_ITS ---
PROCEDURE: CT HEAD/BRAIN WO CON INDICATIONS: trauma TECHNIQUE: Noncontrast 4.5 mm thick angled axial sections acquired from the foramen magnum to the vertex, with coronal and sagittal reformats. For radiation dose reduction, the following was used: automated exposure control, adjustment of mA and/or kV according to patient size. COMPARISON: [facility], [place], PET BRAIN METABOLISM, 08/09/2021, 13:16. [facility], , MR HEAD/BRAIN WO CON, 07/06/2021, 16:33. Outside Facility, [place], CT HEAD W/O CONTRAST, 10/02/2020, 15:54. FINDINGS: Image quality: Excellent. CSF spaces: Basal cisterns are patent. No extra-axial fluid collections. The ventricles are symmetric in size and shape. Brain: No intracranial bleeds or masses. There is cerebral volume loss for age, with resultant ventricular and sulcal prominence. There are periventricular and deep white matter chronic small vessel ischemic changes. There is intracranial internal carotid artery atherosclerosis. Skull and face: Calvarium and visualized facial bones appear intact, without suspicious lesions. Sinuses: Visualized sinuses and mastoids are clear. IMPRESSION: Senescent changes consistent with chronic microvascular ischemic changes and cerebral volume loss without evidence of an acute intracranial abnormality. Dictated by: Coleman Marie D.O. on 12/31/2021 at 13:39 Approved by: Coleman Marie D.O. on 12/31/2021 at 13:43
[2021-12-31 13:45] LABS: Add Manual Diff / Slide Review NO; Basophils Absolute Auto 0 /uL (0-100); Eosinophils Absolute Auto 0 /uL (0-450); Eosinophils Percent Auto 0.5 % (2-4); Hematocrit 40.9 % (36-46); Hemoglobin 14.1 g/dL (12.0-16.0); Lymphocytes Absolute Auto 1100 /uL (1100-4500); Lymphocytes Percent Auto 23.5 % (25-40); Mean Corpuscular HGB Conc 34.5 % (30-36); Mean Corpuscular Hemoglobin 29.2 PG (26-34); Mean Corpuscular Volume 84.6 fL (80-100); Monocytes Absolute Auto 400 /uL (0-900); Monocytes Percent Auto 7.7 % (3-14); Neutrophils Absolute Auto 3200 /uL (1500-7000); Neutrophils Percent Auto 67.3 % (50-75); Platelet Count 221 X10^3/uL (150-400); Red Blood Cell Count 4.83 X10^6/uL (4.0-5.2); White Blood Cell Count 4.8 X10^3/uL (4.5-11.0)
[2021-12-31] MEDS: diazePAM 10 MG/2 ML SYRINGE 5 MG IV (13:45)
[2021-12-31 13:56] LABS: Alanine Aminotransferase 34 IU/L (<35); Albumin 3.9 g/dL (3.5-5.0); Albumin Globulin Ratio 1.3 (1.0-2.8); Alkaline Phosphatase 56 U/L (38-126); Aspartate Aminotransferase 33 IU/L (14-36); BUN Creatinine Ratio 24.1 (6-22); Bilirubin Total 0.4 mg/dL (0.2-1.3); Blood Urea Nitrogen 19 mg/dL (7-17); Calcium 10.5 mg/dL (8.4-10.2); Carbon Dioxide 29 mmol/L (22-32); Chloride 102 mmol/L (98-107); Estimated Glomerular Filt Rate > 60 mL/min (>60); Globulin 2.9 g/dL (1.7-4.1); Glucose 106 mg/dL (80-110); HEMOLYSIS < 15 (0-50); Potassium 4.1 mmol/L (3.4-5.1); Sodium 138 mmol/L (137-145); Total Protein 6.8 g/dL (6.3-8.2)
[2021-12-31 14:16] LABS: Appearance Urine UA CLEAR; Bilirubin Urine UA NEGATIVE (NEGATIVE); Color Urine UA YELLOW; Glucose Urine UA NEGATIVE (Negative); Ketones Urine UA 1+ (NEGATIVE); Leukocyte Esterase Urine UA NEGATIVE (NEGATIVE); Nitrite Urine UA NEGATIVE (Negative); Occult Blood Urine UA NEGATIVE (Negative); Protein Urine UA NEGATIVE (Negative); Urobilinogen Urine UA 0.2 E.U./dL (0.2)
[2021-12-31 14:21] LABS: pH Urine UA 7.5 (4.5-8.0)
[2021-12-31 14:23] LABS: RBC Urine None Seen (0-5/HPF); Squamous Epithelial Cell Urine 0-1 /HPF (0-5/HPF); WBC Urine 0-1/HPF (0-5/HPF)
[2021-12-31 14:24] LABS: Bacteria Urine None Seen; Culture Indicated Urine Cult Not Indicated
[2021-12-31 14:49] LABS: COVID19 -Nasal RAPID Negative (Negative)
[2021-12-31] MEDS: diazePAM 10 MG/2 ML SYRINGE 2 MG IV (17:48)
[2021-12-31] MEDS: ACETAMINOPHEN 325 MG TABLET 650 MG PO (17:48)
--- NOTE | 2021-12-31 18:07 | PC.NURSE ---
Patient arrived to floor w/ daughter Swathi. Patient is notably agitated and pulling at brief and wrapped IV. Patient repeating, I cant do this over and over. Slider board used to trans. patient from [facility] to room bed. B/P hypotensive with a HR of 83. Patient unable to give accurate description of any pain. When assessing ordination patient was able to communicate she was in the hospital in [place], the correct month and year, and was oreientated to self and current president. However at times, patient circles around repeating I can't eat anymore food when no one is attempting to feed and I cant push this (pertaining to the call light button) even when that patient was able to hit the button at her daughters encouragement. VSS. Call light w/ in reach, bed in low position w/ alarm on.
--- NOTE | 2021-12-31 20:35 | PM.HP.1 ---
History of Present Illness History of Present Illness Date Patient Seen: 12/31/21 Time Patient Seen: 20:35 Date of Onset of Symptoms: 11/15/21 Chief complaint: Weakness Narrative: Patient is a 81-year-old female with dementia and significant anxiety who presents with 2 month history of progressive decrease in function. History is from daughter. Weakness. Weight loss. Patient has lost 20 lb over the last couple months. She just isn't eating. Got to the point where she required 2 person assist just to go to the bathroom and has slowly worsened in her function at home. She has had no significant fevers chills blood in her stool black or tarry stools that her daughter knows of. Patient is this not been eating. She describes some burning in her stomach but really his this not been eating well. She has been having increasing anxiety. Which has been worsening her disease. She does have some lucid moments but overall she is having difficulty with function at home because of her mental status along with her who is similarly affected with his dementia. She has no other significant new changes that her daughter can recognize. She has not had any vomiting. But this fills up quickly without any significant change. She has had a scope 1 year ago. Which did not show any significant change. She has had no night sweats and currently is denying any pain. Past medical history is significant for dementia. Frontal temporal lobe. Hypothyroidism. Anxiety. Hyperlipidemia. Past surgical history is unobtainable at this time. Family history is not obtainable from patient. Social history nonsmoker. Occasional drinker Patient History Family & Social History Social History: household members spouse Prior Living Arrangements House Safety & Behavioral: Feels Safe in Current Unwilling to Answer Environment Tobacco & Substance use: Smoking Status Never smoker alcohol intake former alcohol intake frequency 0-2 drinks per day Substance Use Type does not use Meds Home Medications and Allergies Home Medications Medication Instructions Recorded Confirmed Type levothyroxine 50 mcg tablet See Rx Instructions .Route .COMPLEX 12/19/20 12/31/21 History trazodone 50 mg tablet 50 mg PO TID 12/19/20 12/31/21 History omeprazole 20 mg capsule,delayed 20 mg PO BID #28 caps 01/19/21 12/31/21 Rx release aspirin 81 mg tablet 81 mg PO DAILY 12/31/21 12/31/21 History cyanocobalamin (vitamin B-12) 5,000 mcg PO QWEEK 12/31/21 12/31/21 History 1,000 mcg capsule divalproex 500 mg tablet,extended 500 mg PO QAM 12/31/21 12/31/21 History release 24 hr fluoxetine 20 mg capsule (Prozac) 20 mg PO DAILY 12/31/21 12/31/21 History rosuvastatin 5 mg tablet (Crestor) 5 mg PO DAILY 12/31/21 12/31/21 History Allergies Allergy/AdvReac Type Severity Reaction Status Date / Time Sulfa (Sulfonamide Allergy Verified 12/19/20 15:28 Antibiotics) Review of Systems Review of Systems Narrative: Negative except was discussed in above Exam Vital Signs (past 8 hours): - 12/31/21 13:08 12/31/21 13:06 12/31/21 13:30 Temperature 98.0 F Pulse Rate 76 72 Respiratory Rate 18 Blood Pressure 136/75 127/61 Pulse Oximetry 96 100 Oxygen Delivery Method Room Air Oxygen Flow Rate 12/31/21 13:30 12/31/21 14:00 12/31/21 14:00 Temperature Pulse Rate 78 57 L Respiratory Rate Blood Pressure 123/57 L Pulse Oximetry 100 100 Oxygen Delivery Method Oxygen Flow Rate 12/31/21 14:30 12/31/21 15:00 12/31/21 15:30 Temperature Pulse Rate 69 65 64 Respiratory Rate Blood Pressure Pulse Oximetry 98 100 100 Oxygen Delivery Method Oxygen Flow Rate 12/31/21 17:01 12/31/21 19:50 Temperature 96.4 F L Pulse Rate 59 L Respiratory Rate 14 Blood Pressure 121/40 L Pulse Oximetry 100 Oxygen Delivery Method Room Air Oxygen Flow Rate 0 Oxygen Delivery Method Room Air Oxygen Flow Rate 0 Narrative Exam Narrative: Alert fatigued female in no acute distress mucous membranes moist. Neck supple without adenopathy. Lungs are clear. Heart regular rate and rhythm. Abdomen is soft positive bowel sounds nontender extremities without edema. Patient is tremulous with movement but is moving all extremities. Did not ambulate. Objective Labs Result Diagrams: 12/31/21 13:35 12/31/21 13:35 Labs: Laboratory Results - last 24 hr 12/31/21 12/31/21 12/31/21 13:35 13:35 13:35 WBC 4.8 RBC 4.83 Hgb 14.1 Hct 40.9 MCV 84.6 MCH 29.2 MCHC 34.5 RDW 14.0 Plt Count 221 Neut % (Auto) 67.3 Lymph % (Auto) 23.5 L [place] % (Auto) 7.7 Eos % (Auto) 0.5 L Baso % (Auto) 1.0 Neut # (Auto) 3200 Lymph # (Auto) 1100 [place] # (Auto) 400 Eos # (Auto) 0 Baso # (Auto) 0 Sodium 138 Potassium 4.1 Chloride 102 Carbon Dioxide 29 BUN 19 H Creatinine 0.79 Estimated GFR > 60 BUN/Creatinine Ratio 24.1 H Glucose 106 Calcium 10.5 H Total Bilirubin 0.4 AST 33 ALT 34 Alkaline Phosphatase 56 Total Protein 6.8 Albumin 3.9 Globulin 2.9 Albumin/Globulin Ratio 1.3 Urine Color Urine Appearance Urine pH Ur Specific [place] Urine Protein Urine Glucose (UA) Urine Ketones Urine Occult Blood Urine Nitrate Urine Bilirubin Urine Urobilinogen Ur Leukocyte Esterase Urine RBC Urine WBC Ur Squamous Epith Cells Urine Bacteria Ur Culture Indicated? SARS-CoV-2 (PCR) Negative 12/31/21 14:02 WBC RBC Hgb Hct MCV MCH MCHC RDW Plt Count Neut % (Auto) Lymph % (Auto) [place] % (Auto) Eos % (Auto) Baso % (Auto) Neut # (Auto) Lymph # (Auto) [place] # (Auto) Eos # (Auto) Baso # (Auto) Sodium Potassium Chloride Carbon Dioxide BUN Creatinine Estimated GFR BUN/Creatinine Ratio Glucose Calcium Total Bilirubin AST ALT Alkaline Phosphatase Total Protein Albumin Globulin Albumin/Globulin Ratio Urine Color Yellow Urine Appearance Clear Urine pH 7.5 Ur Specific [place] 1.010 Urine Protein Negative Urine Glucose (UA) Negative Urine Ketones 1+ H Urine Occult Blood Negative Urine Nitrate Negative Urine Bilirubin Negative Urine Urobilinogen 0.2 Ur Leukocyte Esterase Negative Urine RBC None seen Urine WBC 0-1/hpf Ur Squamous Epith Cells 0-1 /hpf Urine Bacteria None seen Ur Culture Indicated? Cult not indicated SARS-CoV-2 (PCR) Assessment & Plan Assessment & Plan narrative: Weakness. Acute manager of change the last 48 hours.. Does not appear to be infectious. Etiology is unclear in probably a combination of her dementia and decreased p.o. intake. Unclear as to the cause of that. Does not appear to be central. Head CT does not show any definitive abnormality. At this point will consult physical therapy will see what the next 24 hours brings. If no improvement will need to consider placement. Weight loss. Patient with a somewhat nondescript discussion with her daughter about some burning. She is on PPIs. So I do not think increasing that would really change anything. Discussed with daughter. Will obtain CT scan chest abdomen pelvis and see what if anything is changed since our last evaluation. If not will half to potentially increase her PPI and see how she does with that. This may be beginning of end-stage dementia and will have to decide what treatment courses from here. She daughter understands questions answered. Frontal lobe dementia. Progressive. CT scan shows no change she has been in contact with neurologist and psychiatrist at this point are going to make no changes in medication. Will keep comfortable in the hospital for now. Anxiety. Will treat with IV Valium acute comfortable continue usual medicines and follow from there. Hypothyroidism. Will continue usual medicine. Hyperlipidemia. Will continue her statin. DVT prophylaxis will add Lovenox. I think mechanical devices probably would be a risk for her. GI prophylaxis artery on PPI. Disposition. Will have to see what the next 24 hours brings. See what we find. Question is whether she is going to be capable of going home and will just have to see what happens from here. Discussed with daughter. Will discuss with social Service. Time Spent With Patient Critical Care time: I spent a total of [] minutes of critical care time on this patient's care today; this time is exclusive of procedural time. Quality VTE Deep Vein Thrombosis/Pulmonary Embolism Present on Admission: No
[2021-12-31] MEDS: PANTOPRAZOLE DR 20 MG TABLET PO (20:55)
[2021-12-31] MEDS: TRAZODONE 50 MG TABLET PO (20:55)
[2022-01-01 03:00] VITALS: PULSE 59; RESP 18; O2SAT 94
--- NOTE | 2022-01-01 04:17 | PC.NURSE ---
During patient assessment she stated that she would only be able to tell me her name and birthday. She was very agitated and stated that she was uncomfortable. She was unable to give me any description of pain or discomfort. When asked which way she would be comfortable she stated that she wouldn't be comfortable on either side or her back. Reoriented to time of day. Patient took medications as ordered. Slept through the night.
[2022-01-01 05:20] VITALS: BP 141/67; PULSE 66; RESP 14; TEMP 35.8; O2SAT 98
[2022-01-01 06:17] LABS: Hematocrit 39.4 % (36-46); Hemoglobin 13.3 g/dL (12.0-16.0); Mean Corpuscular HGB Conc 33.7 % (30-36); Mean Corpuscular Hemoglobin 29.1 PG (26-34); Mean Corpuscular Volume 86.2 fL (80-100); Platelet Count 195 X10^3/uL (150-400); Red Blood Cell Count 4.57 X10^6/uL (4.0-5.2); Red Cell Distribution Width 13.6 % (11.6-14.8); White Blood Cell Count 4.7 X10^3/uL (4.5-11.0)
[2022-01-01 06:29] LABS: Alanine Aminotransferase 34 IU/L (<35); Albumin 3.5 g/dL (3.5-5.0); Albumin Globulin Ratio 1.3 (1.0-2.8); Alkaline Phosphatase 52 U/L (38-126); Aspartate Aminotransferase 30 IU/L (14-36); BUN Creatinine Ratio 23.1 (6-22); Bilirubin Total 0.5 mg/dL (0.2-1.3); Blood Urea Nitrogen 18 mg/dL (7-17); Calcium 9.9 mg/dL (8.4-10.2); Carbon Dioxide 33 mmol/L (22-32); Chloride 100 mmol/L (98-107); Estimated Glomerular Filt Rate > 60 mL/min (>60); Globulin 2.8 g/dL (1.7-4.1); Glucose 79 mg/dL (80-110); HEMOLYSIS < 15 (0-50); Potassium 3.8 mmol/L (3.4-5.1); Sodium 138 mmol/L (137-145); Total Protein 6.3 g/dL (6.3-8.2)
[2022-01-01 06:36] LABS: Neutrophils Absolute Manual 2679 /uL (3000-5900); RBC Morphology Normal Morphology; Total Cells Counted 100
--- NOTE | 2022-01-01 07:57 | P.PN_ITS ---
Subjective Subjective Date Patient Seen: 01/01/22 Time Patient Seen: 07:58 Interval history: Patient with no complaints this morning. But very anxious. Feels like she can not drink. No pain. No other change. Exam Vital Signs (past 8 hours): - 01/01/22 03:00 01/01/22 05:20 Temperature 96.4 F L Pulse Rate 59 L 66 Respiratory Rate 18 14 Blood Pressure 141/67 H Pulse Oximetry 94 98 Oxygen Flow Rate 0 0 Oxygen Delivery Method Room Air Oxygen Flow Rate 0 Narrative Exam Narrative: Alert female in no acute distress anxious in appearance. Lungs are clear heart regular rate and rhythm Objective Labs Result Diagrams: 01/01/22 05:51 01/01/22 05:51 Labs: Laboratory Results - last 24 hr 12/31/21 12/31/21 12/31/21 13:35 13:35 13:35 WBC 4.8 RBC 4.83 Hgb 14.1 Hct 40.9 MCV 84.6 MCH 29.2 MCHC 34.5 RDW 14.0 Plt Count 221 Neut % (Auto) 67.3 Lymph % (Auto) 23.5 L [place] % (Auto) 7.7 Eos % (Auto) 0.5 L Baso % (Auto) 1.0 Neut # (Auto) 3200 Lymph # (Auto) 1100 [place] # (Auto) 400 Eos # (Auto) 0 Baso # (Auto) 0 Total Counted Seg Neutrophils % Lymphocytes % (Manual) Monocytes % (Manual) Eosinophils % (Manual) Basophils % (Manual) Neutrophils # (Manual) RBC Morphology Sodium 138 Potassium 4.1 Chloride 102 Carbon Dioxide 29 BUN 19 H Creatinine 0.79 Estimated GFR > 60 BUN/Creatinine Ratio 24.1 H Glucose 106 Calcium 10.5 H Total Bilirubin 0.4 AST 33 ALT 34 Alkaline Phosphatase 56 Total Protein 6.8 Albumin 3.9 Globulin 2.9 Albumin/Globulin Ratio 1.3 Urine Color Urine Appearance Urine pH Ur Specific [place] Urine Protein Urine Glucose (UA) Urine Ketones Urine Occult Blood Urine Nitrate Urine Bilirubin Urine Urobilinogen Ur Leukocyte Esterase Urine RBC Urine WBC Ur Squamous Epith Cells Urine Bacteria Ur Culture Indicated? SARS-CoV-2 (PCR) Negative 12/31/21 01/01/22 01/01/22 14:02 05:51 05:51 WBC 4.7 RBC 4.57 Hgb 13.3 Hct 39.4 MCV 86.2 MCH 29.1 MCHC 33.7 RDW 13.6 Plt Count 195 Neut % (Auto) Lymph % (Auto) [place] % (Auto) Eos % (Auto) Baso % (Auto) Neut # (Auto) Lymph # (Auto) [place] # (Auto) Eos # (Auto) Baso # (Auto) Total Counted 100 Seg Neutrophils % 57.0 Lymphocytes % (Manual) 30.0 Monocytes % (Manual) 11.0 Eosinophils % (Manual) 1.0 L Basophils % (Manual) 1.0 Neutrophils # (Manual) 2679 L RBC Morphology Normal morphology Sodium 138 Potassium 3.8 Chloride 100 Carbon Dioxide 33 H BUN 18 H Creatinine 0.78 Estimated GFR > 60 BUN/Creatinine Ratio 23.1 H Glucose 79 L Calcium 9.9 Total Bilirubin 0.5 AST 30 ALT 34 Alkaline Phosphatase 52 Total Protein 6.3 Albumin 3.5 Globulin 2.8 Albumin/Globulin Ratio 1.3 Urine Color Yellow Urine Appearance Clear Urine pH 7.5 Ur Specific [place] 1.010 Urine Protein Negative Urine Glucose (UA) Negative Urine Ketones 1+ H Urine Occult Blood Negative Urine Nitrate Negative Urine Bilirubin Negative Urine Urobilinogen 0.2 Ur Leukocyte Esterase Negative Urine RBC None seen Urine WBC 0-1/hpf Ur Squamous Epith Cells 0-1 /hpf Urine Bacteria None seen Ur Culture Indicated? Cult not indicated SARS-CoV-2 (PCR) [facility] Social History (Updated 12/19/20 @ 15:50 by Graciela Chaudhari MA) marital status: household members: spouse Smoking Status: Never smoker alcohol intake: former Assessment & Plan Assessment & Plan narrative: Weakness. Acute. Etiology is unclear. Labs are normal. Probable combination of what ever is calming her weight loss and her dementia. But will see how things go. Physical therapy evaluation today. Weight loss. Patient with poor appetite. Patient has had previous EGD which was negative. Will obtain CT scan of chest abdomen pelvis make sure there is no definitive abnormality. May need to consider EGD to be complete but probably part of this is her frontal lobe dementia. At this point will need to follow. Dehydration. Patient clearly is dehydrated. Seems more than yesterday. No other change. Will add fluids for now. See if we can encourage eating. Follow from there. Frontal lobe dementia. Progressive. Probably most of our issue but will see how things go. Patient has had neurology evaluation without any definitive treatment protocol. Will have to watch and see how things go. Anxiety. This certainly does have a significant part of what is going on. Has had multiple psychiatric evaluations will continue Valium here will follow-up with her psychiatrist as outpatient. Hypothyroidism continue usual meds Hyperlipidemia. Will continue her statin. DVT prophylaxis will add Lovenox I think mechanical devices would probably be a significant risk for her. An be confusing. GI prophylaxis already on PPI. Disposition. Will see what CT scan show. Discussed with social service. May need placement will see how things go. Time Spent With Patient Critical Care time: I spent a total of [] minutes of critical care time on this patient's care today ; this time is exclusive of procedural time. Quality VTE Deep Vein Thrombosis/Pulmonary Embolism Present on Admission: No
[2022-01-01] MEDS: SODIUM CHLORIDE 0.9% 1,000 ML 100 ML IV ×2 (09:00→21:00)
[2022-01-01] MEDS: PANTOPRAZOLE DR 20 MG TABLET PO ×2 (09:01→22:26)
[2022-01-01] MEDS: ASPIRIN 81 MG CHEW TAB PO (09:01)
[2022-01-01] MEDS: DIVALPROEX ER 250 MG TAB 500 MG PO (09:01)
[2022-01-01] MEDS: FLUoxetine 20 MG CAPSULE PO (09:01)
[2022-01-01] MEDS: ATORVASTATIN 20 MG TABLET 10 MG PO (09:01)
[2022-01-01] MEDS: ACETAMINOPHEN 325 MG TABLET 650 MG PO ×2 (09:03→17:33)
[2022-01-01] MEDS: LEVOTHYROXINE 50 MCG TABLET 100 MCG PO (09:03)
[2022-01-01] MEDS: TRAZODONE 50 MG TABLET PO ×3 (09:05→22:26)
--- NOTE | 2022-01-01 09:27 | PC.NURSE ---
Addendum entered by Joyce Rivera R.N. 01/01/22 12:53: Patient tolerated her ct well, she is lying down in bed, patient repositioned to her l.side. IVF infusing. Swathi is here and visiting with her mom. Original Note: Assess- Patient is alert but confused, she sais no to everything but is eating for her daughter and took her medication. She becomes anxious easily and is worried about her at home. BS are cta, patient is on ra. Given tylenol for generalized comfort. IVF started on patient, she voided last night only a little bit because she did not drink or eat much. Encouraging fluids and food.
--- NOTE | 2022-01-01 10:02 | CM.DPNOTE ---
Clinicals faxed to [facility] per Sofia. Regina Watkins CM Assist.
--- NOTE | 2022-01-01 12:02 | CM.DANOTE ---
Initial Discharge Planning Note: Case received, EMR reviewed. Met with patient, daughter Swathi (an OTOLARYNGOLOGY NURSE) and spouse (has some dementia). Payer: Medicare PCP: Gosiaeliazar NyeMarco 81 year old female with dementia admitted yesterday afternoon via ambulance. She was admitted with weakness, anxiety and recent weight loss. She lives at home with spouse who has dementia and they have daytime caregivers. She presents to me as somewhat confused and severe anxiety with hands shaking. Patient's daughter Swathi is a semi-retired OTOLARYNGOLOGY NURSE and son in law is Dr Cruz. Interview conducted with Swathi. Swathi states patient has not been eating for a while and cannot ambulate (or transfer?) now. Family is desiring hospice for patient and it appears patient is accepting. Sent referral and placed call [facility] who state they are reviewing and will do a telephone interview with daughter today or tomorrow. But could not see for possibly a week. This DCP asked re delivering equipment today or tomorrow and they are not sure as their policy is changing. Swathi states they are also working on getting nighttime caregivers in place. Discussed possible discharge tomorrow. Will try to get equipment delivered then. Plan: Awaiting call back from [facility] for timeline. PT Eval notes. J Discharge Planning/Care Management CM Discharge Assessment Start: 01/01/22 11:57 Freq: Status: Active Protocol: Document 01/01/22 11:57 (Rec: 01/01/22 12:02 [id number]) Discharge Planning Assessment Assigned Director Instrumentation Ysabel Herrera RN, DCP Advance Directives? Yes Advance Directives on File Yes History Provided By Family Member Prior Living Arrangements House Household Members spouse Comment spouse has dementia. They have daytime caregivers.Note: Daughter Swathi is an OTOLARYNGOLOGY NURSE and son in law is an MD Type of transporation used prior to Relies on Others admit Independent with ADL's No: requires cg assistance Is patient alert and oriented? No: Difficult to assess due to severe anxiety, not tracking conversation Needs Assistance With Bathing,Meal Prep,Managing Medications,Home Chores / Shopping Caregiver for Another No: caregivers in home to help with patient and spouse DME Already Rented / Owned Bath Bench,FWW / Walker Comment Hospice Barriers to Discharge Yes Comment Will need equipment from Hospice in home (i.e. hospital bed, BSC, possible aramis) prior to dc. Discharge Plan Hospice Transportation Arrangement If not ambulatory or transfer capable, BLS Referrals Initiated Other Additional Comment [facility] Review Status In Process Next Review Type Continued Stay Review
--- NOTE | 2022-01-01 12:10 | DIET.CONS ---
Dietary Consultation Note Admission Date: 12/31/2021 16:05 Assessment: 81y F admitted for weakness and refusal of PO intake (solids and fluids) referred to nutrition for the same and MNA 6 (malnourished). Pt restless when RD visited in room. Pt daughter attentive and reassuring to pt. RD attempted conversation c pts daughter, however, pt would call out that she cannot eat, drink, or swallow stating her throat was closing up throughout conversation, pt appears significantly anxious. Pt would take small bites if pts daughter spoon feeding with supportive cuing. They ordered soup and ice cream for lunch today. Abbreviated visit, will attempt again when pt less anxious. Ht: 157.48 cm Wt: 55.338 kg (-13% in <1y) BMI: 22.3 UBW: 63kg Last BM: 12/30/21 (12/31/21 17:41) MNA: 6 Reynaldo Score: 12 Diet: 12/31/21 Breakfast Heart Healthy Diet Diet Modifications: Nutrition Percent Meal Consumed 5% sandwich 12/31/21 18:00 Labs: RBC 4.57 X10^6/uL (4.0-5.2) 01/01/22 05:51 Hgb 13.3 g/dL (12.0-16.0) 01/01/22 05:51 Hct 39.4 % (36-46) 01/01/22 05:51 Creatinine 0.78 mg/dL (0.52-1.04) 01/01/22 05:51 Nutrition Diagnosis: inadequate PO intake r/t fear of throat closing up, psychological causes aeb pt with frontal lobe dementia, pt repeatedly stating throat is closing up and she is unable to eat or drink, 13% unintentional weight loss in <1y, MNA 6. Interventions: 1. Recc continuing to offer variety of foods including variety of beverage textures. Sending chocolate milkshake c dinner to test for tolerance. 2. Recc adequate medical anxiety management to reduce fears of throat closing. Monitoring/Evaluations: POs, ONS and texture type and variety tolerance Electronically Signed by: Ban Cordero 01/01/22 12:10 Clinical Dietitian [address] [address]
[2022-01-01 12:44] VITALS: BP 137/73; PULSE 64; RESP 17; TEMP 36.2; O2SAT 98
--- NOTE | 2022-01-01 15:00 | PT.IIE ---
Physical Therapy Inpatient Evaluation/Re-Eval M1 PT/OT-IP Prior Functional Status Start: 01/01/22 09:11 Freq: NEEDED Status: Active Protocol: Document 01/01/22 15:00 AW (Rec: 01/01/22 15:17 AW [id number]) Medical Review Prior Functional Status Medical History Reviewed Yes Communication Pt speaks with quiet voice. She has dementia. She is able to make her needs known. Mobility and Gait Until three months ago, pt was independent with all mobilities. She has recently been using FWW or 4WW around the house. In the past week, she has needed at least min assist with FWW Activities of Daily Living and IADL's Independent at baseline. Pt has been needing increased assist lately with ADL's. Pt has a caregiver for daytime hours who assists with ADL's and household tasks. She depends on her daughter mostly for transportation. Daughter admits pt's (with dementia) also occasionally drives. Pt has been eating very little. She has UE tremors that are interfering with her ability to care for herself. Social History Household Members spouse Living Arrangements House Number of Floors (Floors) Two Floors Number of Stairs To Enter/Railing? Level entrance. Pt stays on the data entry associate. Home Environment High Toilet,Walk in Shower Home Equipment Front Wheel Walker,Quad Cane, Shower Seat without Backrest Additional Social History Comment Pt has an adjustable bed. She lives with her spouse, Bhupinder , who also has dementia. Supportive daughter and son-in -law live nearby. M2 PT-IP Current Condition Start: 01/01/22 09:11 Freq: NEEDED Status: Active Protocol: Document 01/01/22 15:00 AW (Rec: 01/01/22 15:17 AW [id number]) Physical Therapy Current Condition Current Condition Evaluation Date 01/01/22 Treatment Diagnosis weakness, dehydration, frontal lobe dementia, impaired mobility Onset Date months M3 PT-IP Subjective Start: 01/01/22 09:11 Freq: NEEDED Status: Active Protocol: Document 01/01/22 15:00 AW (Rec: 01/01/22 15:17 AW [id number]) Subjective Physical Therapy Visit Type Type Initial Evaluation Visit Start Time 14:23 Visit Stop Time 15:00 Total Visit Minutes 37 Notes Pt's daughter was present and contributed heavily to history . They are scheduled for hospice information session by phone later today. Physical Therapy Visit Comments Patient Comments Pt responds no to most questioning. M4 PT-IP Mobility and Gait Start: 01/01/22 09:11 Freq: NEEDED Status: Active Protocol: Document 01/01/22 15:00 AW (Rec: 01/01/22 16:54 AW [id number]) PT-Bed Mobility Assessment Rolling Type of Rolling Roll to Right Level of Assist Moderate Assistance,1 Person Assistance Supine to Sit Supine to Sit Maximum Assistance,1 Person Assistance,Head of Bed Elevated Scooting Scooting to Edge of Bed Dependent PT-Transfer Assessment Sit to and From Stand Sit to and from Stand Maximum Assistance,2 Person Assistance Equipment Transfer Assistive Device Gait Belt,Front Wheeled Walker Orthotic/Prosthetic Devices or Brace: No Transfers Transfer Destination Chair,Bedside Commode Transfer Technique Stand Step Pivot Transfer Ability Level of Assist Maximum Assistance,2 Person Assistance Comments Mobility Comments Pt was lying in bed as PT arrived. She reported needing to have a bowel movement. BP 137/105 HR 77. She attempted to move her legs toward right side of bed but was too weak. PT assisted pt to roll to her right side and provided max A for sidelying to sit. Pt needed min to mod A at all times to maintain seated balance. PT offered bed cane for pt to hold with left hand but UE elevation and recooperer were too weak to be effective. RN arrived to assist with mobility. Pt needed max A x 2 to stand and transfer to the BSC. Pt needed mod A for sitting balance initially. She was intermittently able to hold herself in upright sitting but needed assist 75% of the time. Pt stood max A x 2 as DELIMER assisted with pericare. Pt attempted to side step toward chair but was unable. DELIMER switched BSC and chair to allow pt to sit. Pt was positioned with call light in reach. BP after activity was 125/66 HR 66 Pt's daughter remained in the room. Gait Assessment Comments Gait Comments Steps taken during transfer only. See mobility comments for details. PT-Balance Assessment Sitting Balance and Reactions Static Sitting Balance Ability Poor Dynamic Sitting Balance Ability Poor Standing Balance and Reactions Static Standing Balance Ability Poor Dynamic Standing Balance Ability Poor Device Used FWW M5 PT-IP Objective Assessments Start: 01/01/22 09:11 Freq: NEEDED Status: Active Protocol: Document 01/01/22 15:00 AW (Rec: 01/01/22 16:54 AW [id number]) Orientation Orientation/Cognition Level of Alertness Confusional State Orientation Name,Place,Situation Memory Description Short Term Impaired Gross Range of Motion Lower Extremity ROM Assessment Within Functional Limits Strength Lower Extremity Strength Assessment Bilaterally Impaired Hip 3+/5 Knee 3+/5 Ankle 4-/5 DF; PF not tested Sensation Assessment Sensation Gross Sensation WNL M6 PT-IP Treatment Start: 01/01/22 09:11 Freq: NEEDED Status: Active Protocol: Document 01/01/22 15:00 AW (Rec: 01/01/22 16:54 AW [id number]) Physical Therapy Treatment Education Education Provided Safety M7 PT-IP Assessment and Plan Start: 01/01/22 09:11 Freq: NEEDED Status: Active Protocol: Document 01/01/22 15:00 AW (Rec: 01/01/22 16:54 AW [id number]) PT Summary Assessment and Plan Potential Rehabilitation Potential Fair Status of Condition at Evaluation Unstable Summary Impairments Strength,Balance,Cognition,Bed Mobility,Transfers,Gait, Activity Tolerance Assessment Summary Rin is a 81 yo woman admitted with worsening weakness in the context of poor nutrition and recent 20- pound weight loss. Until three months ago, she was independent with all self-care and mobility. She has needed a walker to ambulate these last months but just recently became too weak to walk. On assessment, she required max assist x 2 for bed mobility and transfers with FWW. She is profoundly weak and poorly tolerates unsupported sitting. She and her family are considering hospice care. Depending on goals of care, pt may benefit from continued acute PT. Will plan to follow up with hospitalist physician with the possibility of discharging therapy services if pt elects hospice. Goals Bed Mobility Goal Minimal Assistance Transfer Goal Minimal Assistance,Front Wheeled Walker Gait Goal Minimal Assistance,Front Wheel Walker Gait Distance 10 Other Goals - Pt will sit unsupported 10 minutes SBA Days to Meet Goals 10 Frequency of Treatment Frequency Of Treatment Once a Day Treatment Plan Physical Therapy Treatment Plan Bed Mobility Training,Transfer Training,Gait Training, Therapeutic Exercise,Balance Retraining,Discharge Planning, Neuromuscular Re-ed Other Recommendations and Next Treatment discuss with hospitalist [facility] before proceeding; consider d/ c if pt has elected hospice Recommendations To Nursing Amount of Assist Needed 2 Person Assist,Mechanical Lift Discharge Recommendations PT Discharge Recommendations Home with 24/7 Assist Available Equipment Needed for Home Before defer to hospice Discharge Transportation Needs at Discharge Wheelchair/Cabulance,Stretcher /Ambulance
[2022-01-01 19:50] VITALS: BP 145/63; PULSE 81; RESP 18; TEMP 36.3; O2SAT 100
--- NOTE | 2022-01-01 20:33 | DI.CT.S_ITS ---
PROCEDURE: CT CHEST ABD PEL W CON INDICATIONS: weight loss TECHNIQUE: After the administration of intravenous contrast, 5 mm thick sections acquired from the lung apices to the symphysis. 5 mm coronal and sagittal reformats were performed, with additional 7 mm MIP reformats through the lungs. For radiation dose reduction, the following was used: automated exposure control, adjustment of mA and/or kV according to patient size. COMPARISON: [facility], CT, CT ABDOMEN PELVIS W CON, 02/27/2021, 14:47. FINDINGS: Image quality: Excellent. CHEST: Lungs and pleura: No acute airspace opacities. No pleural effusions or pneumothorax. Central and peripheral airways appear patent and normal in caliber. Mediastinum: Heart size is normal. No pericardial effusion. No mediastinal or hilar adenopathy by size criteria. Thoracic aorta and central pulmonary arteries are normal in size. Esophagus is normal in caliber. No hiatal hernia. Chest wall: No axillary or supraclavicular adenopathy by size criteria. Thyroid gland is unremarkable . ABDOMEN: Solid organs: Liver is normal in size and enhancement. Gallbladder is unremarkable . Biliary system is non dilated. Pancreas enhances normally. Spleen is normal in size and enhancement. No adrenal nodules. Kidneys demonstrate normal size and enhancement, without hydronephrosis. Peritoneum and bowel: Bowel loops demonstrate normal wall thickness and caliber. There is a small gas filled duodenal diverticulum. The appendix is thin walled. No free fluid or air. Nodes and vessels: No retroperitoneal or mesenteric adenopathy by size criteria. Aorta and inferior vena cava are normal in size. There are scattered atheromatous calcifications throughout the aorta and iliac arteries bilaterally. Miscellaneous: No ventral hernias. PELVIS: Genitourinary: Bladder wall thickness is normal. Miscellaneous: No inguinal hernias or adenopathy. Bones: No suspicious bony lesions. No vertebral body compression fractures. IMPRESSION: 1. No acute intra-abdominal findings. Normal appendix. 2. No findings to explain weight loss. 3. Small gas filled duodenal diverticulum. Dictated by: Spring Presley M.D. on 01/01/2022 at 10:16 Approved by: Spring Presley M.D. on 01/01/2022 at 10:21
[2022-01-02 04:42] VITALS: BP 140/51; PULSE 77; RESP 18; TEMP 36.2; O2SAT 100
[2022-01-02] MEDS: ACETAMINOPHEN 325 MG TABLET 650 MG PO (06:17)
[2022-01-02] MEDS: LEVOTHYROXINE 50 MCG TABLET PO (06:17)
[2022-01-02] MEDS: SODIUM CHLORIDE 0.9% 1,000 ML 100 ML IV (06:59)
--- NOTE | 2022-01-02 08:14 | P.DS_ITS ---
History of Present Illness History of Present Illness Date Patient Seen: 01/02/22 Time Patient Seen: 08:14 Date of Onset of Symptoms: 12/30/21 Chief complaint: Weakness Narrative: Patient is a 81-year-old female with dementia and significant anxiety who presents with 2 month history of progressive decrease in function. History is from daughter. Weakness. Weight loss. Patient has lost 20 lb over the last couple months. She just isn't eating. Got to the point where she required 2 person assist just to go to the bathroom and has slowly worsened in her function at home. She has had no significant fevers chills blood in her stool black or tarry stools that her daughter knows of. Patient is this not been eating. She describes some burning in her stomach but really his this not been eating well. She has been having increasing anxiety. Which has been worsening her disease. She does have some lucid moments but overall she is having difficulty with function at home because of her mental status along with her who is similarly affected with his dementia. She has no other significant new changes that her daughter can recognize. She has not had any vomiting. But this fills up quickly without any significant change. She has had a scope 1 year ago. Which did not show any significant change. She has had no night sweats and currently is denying any pain. Past medical history is significant for dementia. Frontal temporal lobe. Hypothyroidism. Anxiety. Hyperlipidemia. Past surgical history is unobtainable at this time. Family history is not obtainable from patient. Social history nonsmoker. Occasional drinker Discharge Providers Provider Date of admission: 12/31/21 16:05 Discharge Date: 01/02/22 Primary care physician: PATRICIA Beth Consults: 12/31/21 16:29 Consult to Dietitian, Adult Routine Comment: several months Reason For Exam: significant weight loose 15-20 in last 12/31/21 16:30 Consult to Help Desk Team Leader Routine Comment: failure to thrive at home, needs placement. 12/31/21 20:37 Consult to Physical Therapy Evaluate & Treat Comment: Physician Instructions: Evaluate and Treat Discharge provider: Hasmukh Lara MD Summary Hospital Course Discharge Diagnosis: Weakness acute Weight loss Dehydration Frontal lobe dementia Anxiety Hypothyroidism Hyperlipidemia Hospital Course: Weakness acute. Patient with acute changes in her strength. Patient has had decreased at it oral intake and has had weight loss. Patient had no evidence of neurologic changes. Clearly patient does have significant weakness which appears to be global. His felt to be secondary to combination of her dementia, anxiety and decreased p.o. intake. Does not appear to be a treatable cause and after discussion with family patient will go home with comfort care and hospice care. 24 hour help at home. With no other changes. Weight loss. Patient admitted with 20 lb weight loss over the last few months. Most which seems to be with this her decrease intake. Patient does not have any significant complaint other than she feels like she can not eat. CT scan of chest abdomen and pelvis show no abnormality that is significantly changed. It is felt to be secondary to her dementia and anxiety which has been aggressively treated as an outpatient. We discussed possible Remeron as a increase in appetite but apparently psychiatrist has felt that would not be a good choice and we did not start. After discussion with family it was clear that this is progressive and probably more related to her mental health issues and will be discharged to hospice that at home. Dehydration. IV hydration was given. She will follow. I suspect this route return given the fact that she will not take p.o.. Why she want take p.o. is really unclear other than her fear of eating. Frontal lobe dementia. Probably the biggest issue in her health at this time. No definitive treatment. Has seen neurologist. Will follow with comfort care. Anxiety. Also seems to be a significant issue. Whether this was longstanding or related to her frontal lobe dementia it is unclear. But at this point will continue usual medicine. Will give Valium as needed which was sent to the pharmacy and dilaudid for pain. And will follow. Hypothyroidism continue usual meds. Hyperlipidemia. At this point will continue statin but may discontinue given hospice. Status at Discharge Cognitive/behavioral status at discharge: confused Functional status at discharge: bed bound Overall status at discharge: patient is not back to baseline Exam Vital Signs (past 8 hours): - 01/02/22 04:42 Temperature 97.1 F L Pulse Rate 77 Respiratory Rate 18 Blood Pressure 140/51 L Pulse Oximetry 100 Oxygen Flow Rate 0 Oxygen Delivery Method Room Air Oxygen Flow Rate 0 Narrative Exam Narrative: Alert anxious somewhat tremulous female in no acute distress Mucous membranes moist neck supple without adenopathy lungs are clear. Heart regular rate and rhythm. Abdomen is soft positive bowel sounds nontender neurologic exam is nonfocal Objective Labs Result Diagrams: 01/01/22 05:51 01/01/22 05:51 [facility] Social History (Updated 12/19/20 @ 15:50 by Graciela Chaudhari MA) marital status: household members: spouse Smoking Status: Never smoker alcohol intake: former Discharge Plan Discharge Plan Patient Disposition: Hospice - Home Provider Discharge Comment: Patient should be able to discharge later this afternoon when family has all equipment set up. Discharge orders & Medications Discharge Orders: Discharge (Order); Ordered 01/02/22 Ordered By: Hasmukh Lara Prescriptions: Continued omeprazole 20 mg capsule,delayed release(DR/EC) 20 mg PO BID Qty: 28 0RF levothyroxine 50 mcg tablet See Rx Instructions .ROUTE .COMPLEX Rx Instructions: take 100 mcg on M,W,F and 50 mcg orally all other days trazodone 50 mg tablet 50 mg PO TID aspirin 81 mg Tablet 81 mg PO DAILY fluoxetine [Prozac] 20 mg Capsule 20 mg PO DAILY divalproex 500 mg tablet extended release 24 hr 500 mg PO QAM rosuvastatin [Crestor] 5 mg Tablet 5 mg PO DAILY cyanocobalamin (vitamin B-12) 1,000 mcg capsule 5,000 mcg PO QWEEK Follow up/Referrals: Gosia Lara ARNP [Primary Care Provider] - (Follow-up will be through hospice family can call if needed any additional help) Discharge Health Status Care Plan Goals: Comfort Multidrug resistant organism: No MDRO Diet/Activity/Treatments Diet: Diet as Tolerated Activity: As tolerated with assistance Skin/Wound/Dressing Care Report to your healthcare provider any signs of infection, such as:: chills, fever and increased pain Discharge Data Primary Care Provider: Gosia Lara Attending Provider: Hasmukh Lara Quality VTE Deep Vein Thrombosis/Pulmonary Embolism Present on Admission: No
[2022-01-02 08:20] VITALS: PULSE 72; RESP 18; O2SAT 94
[2022-01-02] MEDS: TRAZODONE 50 MG TABLET PO (08:52)
[2022-01-02] MEDS: FLUoxetine 20 MG CAPSULE PO (08:52)
[2022-01-02] MEDS: PANTOPRAZOLE DR 20 MG TABLET PO (08:52)
[2022-01-02] MEDS: ASPIRIN 81 MG CHEW TAB PO (08:52)
--- NOTE | 2022-01-02 11:16 | CM.DPNOTE ---
Called [facility] for 1300 transport today to home. Spoke to Ashutosh. Regina Watkins CM Assist.
--- NOTE | 2022-01-02 11:24 | PC.NURSE ---
Patient is more calm this morning, slight shaking of her arms. Calms after Trazodone given. Patient is resting and took a few bites of her oat meal.
[2022-01-02] MEDS: diazePAM 2 MG TABLET PO (12:37)
--- NOTE | 2022-01-02 13:50 | CM.DPC ---
DCP/continued: Reviewed chart. Patient with d/c orders to d/c home today with hospice. COCOA ROOM OPERATOR met with daughter/Swathi and she confirms plan. DME has been delivered to residence. Hospice expected to see in the residence on Saturday. COCOA ROOM OPERATOR asked PIPE/Regina to fax d/c summary to hospice and coordinate non-urgent BLS transport for approximately 1:00pm. P: Home today with hospice services to begin at the end of the week. Family very comfortable taking patient home prior to hospice opening on Saturday. VIKASH Armando
== END 2022-01-02 14:03 | disposition hospice, home (50) ==
LOC: ED 15:26 → AC 16:06
PROVIDERS: Admitting Provider Family Medicine; Emergency Provider Family Medicine Addiction Medicine; Family Provider Student in an Organized Health Care Education/Training Program; PCP Internal Medicine; Referring Provider Family Medicine Addiction Medicine; Visit Provider Family Medicine
DX: R53.1 Weakness (principal); G31.09 Other frontotemporal neurocognitive disorder; F02.80 Dementia in other diseases classified elsewhere, unspecified severity, without behavioral disturbance, psychotic disturbance, mood disturbance, and anxiety; E86.0 Dehydration; R63.4 Abnormal weight loss; F41.9 Anxiety disorder, unspecified; E03.9 Hypothyroidism, unspecified; E78.5 Hyperlipidemia, unspecified; Z20.822 Contact with and (suspected) exposure to COVID-19
CPT/HCPCS: 36415; 70450; 71260; 74177; 80053; 81001; 85025; 87635; 93005; 93010; 96361; 96374; 96376; 97163; 97530; 99284; C9803; G0378; J3360; Q9967